=== PATIENT | female | born 1950 | race Caucasian/White ===

== ENCOUNTER 2018-04-21 21:03 | Emergency (ER) | payer MEDICARE, OTHER ==
[~2018-04-21] VITALS: Ht 162.6 cm; Wt 68.0 kg
[~2018-04-21 21:03] MED LIST: AMBIEN5 MG PO; CEFDINIR300 MG PO; CYMBALTA20 MG PO; LASIX20 MG PO; NEXIUM20 MG; NORCO 10-325 T1 EACH
--- OUTSIDE RECORDS SUMMARY | 2018-04-21 21:05 | XMS REPORT | Clinical Summary ---
Author Author [facility] Organization [facility] Address Unknown Phone Unavailable Care Team Providers Care Religion Department Chair Name Role Phone Christopher Villaseñor MD PCP Allergies Comments Active Allergy Reactions Severity Noted Date Pt states cannot take, since she will bleed from it, not allergy Aspirin 10/11/2015 "makes me turn blue" Benzene Other (See 11/02/2016 Comments) Citalopram 04/10/2017 Dye 10/11/2015 Needs premed with Prednisone and Benadryl (Sneezing) Iodinated Contrast- Oral 08/08/2015 And Iv Dye Mild respiratory, sneezing, chest tightness Iodine Other (See 06/10/2006 Comments) Metoprolol Succinate Nausea And 10/11/2015 Vomiting Medications End Date Status Medication Sig Dispensed Refills Start Date Active FLUoxetine (PROzac) 20 MG Take 20 mg by 3 capsule mouth every 6 morning. Active lidocaine-prilocaine 0 (EMLA) cream Active furosemide (LASIX) 20 MG Take 20 mg by 0 tablet mouth as needed (leg swelling). Active melatonin tablet Take 10 mg by 0 mouth as needed. Active cholecalciferol, vitamin Take 5,000 0 D3, (VITAMIN D3) 1,000 Units by unit tablet mouth daily. Active HYDROcodone-acetaminophen Take 1 tablet 0 (NORCO) 10-325 mg per by mouth 3 tablet (three) times a day as needed for moderate pain. Active cyanocobalamin-cobamamide Place under 0 (B12) 5,000-100 mcg the tongue. lozenge Active multivitamin with Take 1 tablet 0 minerals tablet by mouth daily. Active bevacizumab (AVASTIN) 25 Infuse 400 mg 0 mg/mL chemo injection into a venous catheter every 30 (thirty) days. Active FERUMOXYTOL (FERAHEME IV) Infuse into a 0 venous catheter. Active acyclovir (ZOVIRAX) 200 Take 400 mg 4 MG capsule by mouth 2 8 (two) times a day. Active gabapentin (NEURONTIN) Take 400 mg 3 400 mg capsule by mouth 2 8 (two) times a day. Active traZODone (DESYREL) 50 MG Take 50 mg by 0 tablet mouth 8 nightly. Active FLUoxetine (PROzac) 10 MG TAKE 1 3 capsule CAPSULE TO BE 8 TAKEN WITH 20 MG ONCE A DAY ORALLY 12/09/2018 Active pantoprazole (PROTONIX) Take 1 tablet 180 tablet 3 40 MG EC tablet (40 mg total) 8 by mouth 2 (two) times a day. Active amoxicillin-pot 0 clavulanate (AUGMENTIN) 8 875-125 mg per tablet Active methylPREDNISolone 0 (MEDROL DOSEPAK) 4 mg 8 tablet Active temazepam (RESTORIL) 15 Take 15 mg by 0 mg capsule mouth nightly 8 as needed. 11/20/2017 Discontinued zolpidem (AMBIEN) 5 MG Take 5 mg by 0 tablet mouth nightly as needed for sleep. 06/06/2017 Discontinued alendronate (FOSAMAX) 70 Take 70 mg by 0 MG tablet mouth. Take in the morning with a full glass of water, on an empty stomach, and do not take anything else by mouth or lie down for the next 30 min. 09/12/2017 Discontinued pantoprazole (PROTONIX) Take 1 tablet 60 tablet 11 40 MG EC tablet (40 mg total) 7 by mouth 2 (two) times a day. 06/06/2017 Discontinued albuterol (PROAIR Inhale 2 0 HFA,PROVENTIL puffs every 4 HFA,VENTOLIN HFA) 90 (four) hours mcg/actuation inhaler as needed for wheezing or shortness of breath. 06/06/2017 Discontinued ipratropium-albuterol Take 3 mL by 0 (DUO-NEB) 0.5-2.5 mg/mL nebulization nebulizer every 4 (four) hours as needed for wheezing or shortness of breath. 06/06/2017 Discontinued arformoterol (BROVANA) 15 Take 15 mcg 0 mcg/2 mL solution for by nebulization nebulization 2 (two) times a day. 06/06/2017 Discontinued budesonide (PULMICORT) Take 0.5 mg 0 0.5 mg/2 mL nebulizer by solution nebulization 2 (two) times a day. 12/09/2017 Discontinued pantoprazole (PROTONIX) Take 1 tablet 60 tablet 3 40 MG EC tablet (40 mg total) 7 by mouth 2 (two) times a day. 06/06/2017 Discontinued famotidine (PEPCID) 20 MG Take 1 tablet 60 tablet 0 tablet (20 mg total) 8 by mouth 2 (two) times a day for 30 days. 09/19/2017 Discontinued memantine (NAMENDA) 5 MG Take 1 tablet 60 tablet 11 tablet (5 mg total) 8 by mouth 2 (two) times a day. 09/19/2017 Discontinued pantoprazole (PROTONIX) TAKE 1 TABLET 60 tablet 8 40 MG EC tablet BY MOUTH 8 TWICE A DAY 11/20/2017 Discontinued docosahexanoic acid/epa Take 1 0 (FISH OIL ORAL) capsule by mouth daily. 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 Encounters Care Team Description Date Type Specialty Christopher Villaseñor MD Hereditary hemorrhagic telangiectasia (HCC) (Primary Dx); Iron deficiency anemia due to chronic blood loss 04/08/2018 Hospital Hematology and Oncology Encounter Yesenia Trinh RN 04/02/2018 Orders Only Hematology and Oncology Christopher Villaseñor MD Canceled (Patient) 03/27/2018 Hospital Hematology and Oncology Encounter Christopher Vilalseñor MD Hereditary hemorrhagic telangiectasia (HCC) (Primary Dx); Iron deficiency anemia due to chronic blood loss 02/27/2018 Hospital Hematology and Oncology Encounter Christopher Villaseñor MD Hereditary hemorrhagic telangiectasia (HCC) 02/27/2018 Orders Only Hematology and Oncology Tania Courtney, [employer] 02/27/2018 Orders Only Hematology and Oncology Christopher Villaseñor MD 02/27/2018 Orders Only Hematology and Oncology Christopher Villaseñor MD Iron deficiency anemia secondary to blood loss (chronic) (Primary Dx); Hereditary hemorrhagic telangiectasia (HCC) 02/25/2018 Lab Lab Christopher Villaseñor MD Hereditary hemorrhagic telangiectasia (HCC) 02/25/2018 Orders Only Hematology and Oncology Tania Courtney, S[employer]IOR [employer] LO[employer]ER 02/25/2018 Orders Only Hematology and Oncology Christopher Villaseñor MD 02/17/2018 Orders Only Hematology and Oncology Vaughn Givens RN 02/12/2018 Orders Only Oncology Christopher Villaseñor MD Hereditary hemorrhagic telangiectasia (HCC); Iron deficiency anemia due to chronic blood loss 01/15/2018 Hospital Hematology and Oncology Encounter Christopher Villaseñor MD Hereditary hemorrhagic telangiectasia (HCC) 01/15/2018 Orders Only Hematology and Oncology Kristy Keating RN 12/24/2017 Refill Obstetrics and Gynecology Christopher Villaseñor MD Iron deficiency anemia due to chronic blood loss; Hereditary hemorrhagic telangiectasia 12/18/2017 Hospital Hematology and Oncology Encounter Christopher Villaseñor MD 12/10/2017 Orders Only Hematology and Oncology Kurt Isaacs MD 12/09/2017 Lab Lab Brina Trimble MA 12/09/2017 Refill Gastroenterology Christopher Villaseñor MD Canceled (Patient) 12/06/2017 Hospital Hematology and Oncology Encounter Christopher Villaseñor MD Hereditary hemorrhagic telangiectasia 12/06/2017 Orders Only Hematology and Oncology Miranda Masterson MD 11/21/2017 Anesthesia Radiology Event Christopher Villaseñor MD Hereditary hemorrhagic telangiectasia 11/21/2017 Hospital Radiology Encounter Christopher Villaseñor MD 11/13/2017 Transcribe Radiology Orders Christopher Villaseñor MD Hereditary hemorrhagic telangiectasia (Primary Dx) 11/12/2017 Transcribe Radiology Orders Christopher Villaseñor MD Hereditary hemorrhagic telangiectasia; Iron deficiency anemia due to chronic blood loss 11/08/2017 Hospital Hematology and Oncology Encounter Christopher Villaseñor MD Canceled (Patient) 11/01/2017 Hospital Hematology and Oncology Encounter Christopher Villaseñor MD Hereditary hemorrhagic telangiectasia; Iron deficiency anemia due to chronic blood loss 10/03/2017 Hospital Hematology and Oncology Encounter Christopher Villaseñor MD Hereditary hemorrhagic telangiectasia 10/03/2017 Orders Only Hematology and Oncology Christopher Villaseñor MD Canceled (Patient) 09/30/2017 Hospital Hematology and Oncology Encounter Tania Courtney, SHELBY 09/30/2017 Orders Only Hematology and Oncology Ralf Hurley MD Cerebrovascular accident (CVA) due to bilateral embolism of middle cerebral arteries (Primary Dx); Hereditary hemorrhagic telangiectasia 09/19/2017 Office Visit Neurology Behzad Elaine MD 09/11/2017 Refill Gastroenterology Christopher Villaseñor MD Hereditary hemorrhagic telangiectasia 09/02/2017 Hospital Hematology and Oncology Encounter Christopher Villaseñor MD Canceled (Patient) 08/30/2017 Hospital Hematology and Oncology Encounter Ralf Hurley MD Hereditary hemorrhagic telangiectasia; Cerebrovascular accident (CVA) due to bilateral embolism of middle cerebral arteries 08/14/2017 Hospital Neurology Encounter Tania Courtney, SHELBY 08/12/2017 Orders Only Hematology and Oncology Christopher Villaseñor MD Hereditary hemorrhagic telangiectasia; Iron deficiency anemia due to chronic blood loss 08/02/2017 Hospital Hematology and Oncology Encounter Ralf Hurley MD 07/30/2017 Transcribe Neurology Orders Christopher Villaesñor MD Hereditary hemorrhagic telangiectasia; Iron deficiency anemia due to chronic blood loss 07/05/2017 Hospital Hematology and Oncology Encounter Kirk Avalos MD 07/01/2017 Orders Only Neurology Ralf Hurley MD 06/27/2017 Orders Only Neurology Ralf Hurley MD 06/20/2017 Telephone Neurology Christopher Villaseñor MD Hereditary hemorrhagic telangiectasia; Iron deficiency anemia due to chronic blood loss 06/07/2017 [facility] Hematology and Oncology Encounter Jeremy Chavez MD 06/06/2017 Anesthesia Gastroenterology Event Behzad Elaine MD ESOPHAGOGASTRODUODENOSCOPY (EGD) with APC to AVM's in Small Intestine 06/06/2017 Surgery Gastroenterology Behzad Elaine MD Hereditary hemorrhagic telangiectasia (Primary Dx) 06/06/2017 Hospital Gastroenterology Encounter Tania Courtney NP 06/06/2017 Orders Only Hematology and Oncology Christopher Villaseñor MD Hereditary hemorrhagic telangiectasia 06/06/2017 Orders Only Hematology and Oncology Ralf Hurley MD Hereditary hemorrhagic telangiectasia (Primary Dx); Cerebrovascular accident (CVA) due to bilateral embolism of middle cerebral arteries 06/04/2017 Office Visit Neurology Pallavi Saravia MD 05/31/2017 Anesthesia Gastroenterology Event Behzad Elaine MD ESOPHAGOGASTRODUODENOSCOPY (EGD)with APC, balloon dilation 18-20mm 05/31/2017 Surgery Gastroenterology Farooq Dai MD Iron deficiency anemia, unspecified iron deficiency anemia type (Primary Dx); Food impaction of esophagus, subsequent encounter; Hereditary hemorrhagic telangiectasia 05/29/2017 [facility] General Internal Medicine - Encounter 05/31/2017 Christopher Villaseñor MD Iron deficiency anemia due to chronic blood loss 05/29/2017 Hospital Hematology and Oncology Encounter Farooq Dai MD 05/29/2017 Orders Only General Internal Medicine Dagmar Lechuga NP 05/29/2017 Orders Only General Internal Medicine Behzad Elaine MD 05/24/2017 Telephone Gastroenterology Ramandeep Martinez MD 05/16/2017 Anesthesia Radiology Event Christopher Villaseñor MD 05/16/2017 Hospital Radiology Encounter Canceled (Department/Provider) 05/10/2017 Hospital Hematology and Oncology Encounter Behzad Elaine MD ESOPHAGOGASTRODUODENOSCOPY (EGD)with foreign body removal 05/09/2017 Surgery Gastroenterology Carrie Loaiza MD Tompson, Matthew L., MD Food impaction of esophagus, initial encounter (Primary Dx); Esophageal obstruction due to food impaction 05/09/2017 Emergency Emergency Medicine - 05/10/2017 Audrey Barragan RN 05/09/2017 Telephone Gastroenterology Christopher Villaseñor MD 05/09/2017 Transcribe Radiology Orders Tania Courtney NP 05/09/2017 Orders Only Hematology and Oncology Ralf Hurley MD 04/22/2017 Telephone Neurology after 04/20/2017 Immunizations Name Dates Previously Given Next Due FLUCELVAX QUAD PF (0.5mL 05/31/2017, 01/02/2016 syringe) Pneumococcal Conjugate 05/31/2017, 01/02/2016 13-Valent Family History Medical History Relation Name Comments Heart disease Brother Heart disease Father Stroke Father Cancer Mother Lung cancer Mother Relation Name Status Comments Brother HHT Father Mother Social History Date Tobacco Use Types Packs/Day Years Used Quit: 06/11/1998 Former Smoker Cigarettes 2 Smokeless Tobacco: Never Used Alcohol Use Drinks/Week oz/Week Comments No Sex Assigned at Date Recorded Not on file Industry Job Start Date Occupation Not on file Not on file Not on file Travel End Travel History Travel Start No recent travel history available. Last Filed Vital Signs Time Taken Vital Sign Reading 04/08/2018 11:30 AM [employer] Blood Pressure 131/59 04/08/2018 11:30 AM [employer] Pulse 67 04/08/2018 11:30 AM [employer] Temperature 36.9 C (98.4 F) 04/08/2018 11:30 AM [employer] Respiratory Rate 18 04/08/2018 11:30 AM [employer] Oxygen Saturation 87% - Inhaled Oxygen - Concentration 04/08/2018 11:30 AM [employer] Weight 69.7 kg (153 lb 9.6 oz) 04/08/2018 11:30 AM [employer] Height 162.6 cm (5' 4") 04/08/2018 11:30 AM [employer] Body Mass Index 26.37 Plan of Treatment Care Team Description Date Type Specialty Christopher Villaseñor MD [address] [place], [place] [id number] 05/06/2018 Appointment Hematology and Oncology Health Maintenance Due Date Last Done Comments BREAST CANCER SCREENING 2000 COLON CANCER SCREENING 2000 SHINGLES VACCINES (1 of 2000 2) PNEUMOCOCCAL 2015 POLYSACCHARIDE VACCINE AGE 65 AND OVER INFLUENZA VACCINE 10/30/2017 05/31/2017, 01/02/2016, 12/14/2013, Additional history exists PNEUMOCOCCAL-13 Completed 05/31/2017, 01/02/2016 Implants Device Identifier Shelf Expiration Date Model / Serial / Lot Implanted Type Area Manufactur er 08/29/2020 [id number] / / [id number] Port Imlpntbl Smart Port W/ Dtchd Implantabl N/A: N/A ANGIODYNAM 0.4ml 6.6fr 55cm W/ Sheath - e [employer]fusion [employer] [id number] Ports or Implanted: 11/21/2017 (Quantity not Accessorie on file) s [id number] / / Dilator Baln Fxdwr [id number] Surgical N/A: N/A BSC 18-19-20mm Cre - [id number] Implants; ENDOSCOPY Implanted: 05/31/2017 (Quantity not Expanders; on file) Extenders; Surgical Wires Procedures Comments Procedure Name Priority Date/Time Associated Diagnosis MANUAL DIFFERENTIAL STAT 04/08/2018 10:34 AM [employer] ESTIMATED GFR STAT 04/08/2018 10:34 AM [employer] COMPREHENSIVE METABOLIC STAT 04/08/2018 Hereditary hemorrhagic PANEL 10:34 AM [employer] telangiectasia (HCC) CBC WITH PLATELET AND STAT 04/08/2018 Hereditary hemorrhagic DIFFERENTIAL 10:34 AM [employer] telangiectasia (HCC) URINALYSIS, AUTOMATED STAT 04/08/2018 Hereditary hemorrhagic WITH MICROSCOPY 10:34 AM [employer] telangiectasia (HCC) URINALYSIS, AUTOMATED STAT 02/27/2018 Hereditary hemorrhagic WITH MICROSCOPY 10:39 AM [employer] telangiectasia (HCC) ESTIMATED GFR Routine 02/25/2018 10:02 AM [employer] TOTAL IRON BINDING Routine 02/25/2018 Iron deficiency anemia CAPACITY 10:02 AM [employer] secondary to blood loss (chronic) Hereditary hemorrhagic telangiectasia (HCC) FERRITIN LEVEL Routine 02/25/2018 Iron deficiency anemia 10:02 AM [employer] secondary to blood loss (chronic) Hereditary hemorrhagic telangiectasia (HCC) HEPATIC FUNCTION PANEL Routine 02/25/2018 Iron deficiency anemia 10:02 AM [employer] secondary to blood loss (chronic) Hereditary hemorrhagic telangiectasia (HCC) BASIC METABOLIC PANEL Routine 02/25/2018 Iron deficiency anemia 10:02 AM [employer] secondary to blood loss (chronic) Hereditary hemorrhagic telangiectasia (HCC) MANUAL DIFFERENTIAL STAT 01/15/2018 10:29 AM CDT ESTIMATED GFR STAT 01/15/2018 10:29 AM CDT COMPREHENSIVE METABOLIC STAT 01/15/2018 Hereditary hemorrhagic PANEL 10:29 AM CDT telangiectasia (HCC) CBC WITH PLATELET AND STAT 01/15/2018 Hereditary hemorrhagic DIFFERENTIAL 10:29 AM CDT telangiectasia (HCC) URINALYSIS, AUTOMATED STAT 01/15/2018 Hereditary hemorrhagic WITH MICROSCOPY 10:29 AM CDT telangiectasia (HCC) MANUAL DIFFERENTIAL STAT 12/18/2017 10:34 AM CDT ESTIMATED GFR STAT 12/18/2017 10:34 AM CDT COMPREHENSIVE METABOLIC STAT 12/18/2017 Hereditary hemorrhagic PANEL 10:34 AM CDT telangiectasia CBC WITH PLATELET AND STAT 12/18/2017 Hereditary hemorrhagic DIFFERENTIAL 10:34 AM CDT telangiectasia URINALYSIS, AUTOMATED STAT 12/18/2017 Hereditary hemorrhagic WITH MICROSCOPY 10:34 AM CDT telangiectasia RESPIRATORY PATHOGEN Routine 12/09/2017 PANEL 11:08 AM CDT TRANSFUSE RED BLOOD CELLS Routine 12/04/2017 5:50 PM CDT TRANSFUSE RED BLOOD CELLS Routine 12/04/2017 5:50 PM CDT IR PORT Routine 11/21/2017 Hereditary hemorrhagic REPLACEMENT/EXCHANGE 3:54 PM CDT telangiectasia (HCC) IR PORT EVALUATION Routine 11/21/2017 Hereditary hemorrhagic 3:54 PM CDT telangiectasia (HCC) MT AN ELECTIVE Routine 11/21/2017 SUPRAGLOTTIC AIRWAY 2:37 PM CDT Procedure Note - Miranda Masterson MD - 11/21/2017 2:37 PM CDT Airway Date/Time: 11/21/2017 2:27 PM Performed by: MIRANDA MASTERSON Authorized by: MIRANDA MASTERSON Location: Radiology Urgency: Elective Difficult Airway: No Anesthesio logist: MIRANDA MASTERSON Performed by: anesthesio logist Preoxygena misti with 100% O2: Yes C-spine Precaution s Maintained Throughout : No Mask Ventilatio n: Not attempted Final Airway Type: Supraglott ic airway Final LMA: Classic LMA Size: 3 Number of Attempts at Approach: 1 PROTHROMBIN TIME WITH INR STAT 11/08/2017 2:13 PM CDT PARTIAL THROMBOPLASTIN STAT 11/08/2017 Iron deficiency anemia TIME (PTT) 2:13 PM CDT due to chronic blood loss MANUAL DIFFERENTIAL STAT 11/08/2017 10:54 AM CDT ZZESTIMATED GFR STAT 11/08/2017 10:54 AM CDT COMPREHENSIVE METABOLIC STAT 11/08/2017 Hereditary hemorrhagic PANEL 10:54 AM CDT telangiectasia CBC WITH PLATELET AND STAT 11/08/2017 Hereditary hemorrhagic DIFFERENTIAL 10:54 AM CDT telangiectasia URINALYSIS, AUTOMATED STAT 11/08/2017 Hereditary hemorrhagic WITH MICROSCOPY 10:54 AM CDT telangiectasia MAGNESIUM LEVEL STAT 10/03/2017 10:28 AM CDT SMEAR REVIEW STAT 10/03/2017 10:28 AM CDT ZZESTIMATED GFR STAT 10/03/2017 10:28 AM CDT COMPREHENSIVE METABOLIC STAT 10/03/2017 Hereditary hemorrhagic PANEL 10:28 AM CDT telangiectasia HC COMPLETE BLD COUNT STAT 10/03/2017 Hereditary hemorrhagic W/AUTO DIFF 10:28 AM CDT telangiectasia URINALYSIS, AUTOMATED STAT 10/03/2017 Hereditary hemorrhagic WITH MICROSCOPY 10:28 AM CDT telangiectasia SMEAR REVIEW STAT 09/02/2017 9:47 AM CDT ZZESTIMATED GFR STAT 09/02/2017 9:47 AM CDT COMPREHENSIVE METABOLIC STAT 09/02/2017 Hereditary hemorrhagic PANEL 9:47 AM CDT telangiectasia HC COMPLETE BLD COUNT STAT 09/02/2017 Hereditary hemorrhagic W/AUTO DIFF 9:47 AM CDT telangiectasia URINALYSIS, AUTOMATED STAT 09/02/2017 Hereditary hemorrhagic WITH MICROSCOPY 9:47 AM CDT telangiectasia EEG AWAKE/DROWSY LESS Routine 08/14/2017 Hereditary hemorrhagic THAN 41 MIN 1:38 PM CDT telangiectasia Cerebrovascular accident (CVA) due to bilateral embolism of middle cerebral arteries SMEAR REVIEW STAT 08/02/2017 9:42 AM CDT ZZESTIMATED GFR STAT 08/02/2017 9:42 AM CDT COMPREHENSIVE METABOLIC STAT 08/02/2017 Hereditary hemorrhagic PANEL 9:42 AM CDT telangiectasia HC COMPLETE BLD COUNT STAT 08/02/2017 Hereditary hemorrhagic W/AUTO DIFF 9:42 AM CDT telangiectasia URINALYSIS, AUTOMATED STAT 08/02/2017 Hereditary hemorrhagic WITH MICROSCOPY 9:42 AM CDT telangiectasia SMEAR REVIEW STAT 07/05/2017 9:18 AM CDT ZZESTIMATED GFR STAT 07/05/2017 9:18 AM CDT COMPREHENSIVE METABOLIC STAT 07/05/2017 Hereditary hemorrhagic PANEL 9:18 AM CDT telangiectasia HC COMPLETE BLD COUNT STAT 07/05/2017 Hereditary hemorrhagic W/AUTO DIFF 9:18 AM CDT telangiectasia URINALYSIS, AUTOMATED STAT 07/05/2017 Hereditary hemorrhagic WITH MICROSCOPY 9:18 AM CDT telangiectasia MRA NECK WO CONTRAST Routine 06/28/2017 MRA HEAD WO CONTRAST Routine 06/28/2017 MRI BRAIN WO CONTRAST Routine 06/26/2017 MANUAL DIFFERENTIAL STAT 06/07/2017 9:17 AM [employer] ZZESTIMATED GFR STAT 06/07/2017 9:17 AM [employer] COMPREHENSIVE METABOLIC STAT 06/07/2017 Hereditary hemorrhagic PANEL 9:17 AM [employer] telangiectasia CBC WITH PLATELET AND STAT 06/07/2017 Hereditary hemorrhagic DIFFERENTIAL 9:17 AM [employer] telangiectasia URINALYSIS, AUTOMATED STAT 06/07/2017 Hereditary hemorrhagic WITH MICROSCOPY 9:17 AM [employer] telangiectasia ESOPHAGOGASTRODUODENOSCOP 06/06/2017 Dysphagia Y (EGD) 12:00 PM [employer] ESOPHAGOGASTRODUODENOSCOP 05/31/2017 Food impaction of Y (EGD) 7:00 AM [employer] esophagus, subsequent encounter Iron deficiency anemia, unspecified iron deficiency anemia type ZZESTIMATED GFR Routine 05/31/2017 6:21 AM [employer] MAGNESIUM LEVEL Routine 05/31/2017 6:21 AM [employer] BASIC METABOLIC PANEL Routine 05/31/2017 6:21 AM [employer] HC COMPLETE BLD COUNT Routine 05/31/2017 W/AUTO DIFF 6:21 AM [employer] PERIPHERAL SMEAR Routine 05/30/2017 5:33 AM [employer] SMEAR REVIEW Routine 05/30/2017 5:33 AM [employer] HC COMPLETE BLD COUNT Routine 05/30/2017 W/AUTO DIFF 5:33 AM [employer] ZZESTIMATED GFR Routine 05/30/2017 4:00 AM [employer] BASIC METABOLIC PANEL Routine 05/30/2017 4:00 AM [employer] TRANSFUSE RED BLOOD CELLS Routine 05/29/2017 Iron deficiency anemia 5:56 PM [employer] due to chronic blood loss HAPTOGLOBIN STAT 05/29/2017 5:11 PM [employer] LDH STAT 05/29/2017 Iron deficiency anemia 5:11 PM [employer] due to chronic blood loss URINALYSIS, AUTOMATED STAT 05/29/2017 Iron deficiency anemia WITH MICROSCOPY 4:57 PM [employer] due to chronic blood loss HC COMPLETE BLD COUNT STAT 05/29/2017 Iron deficiency anemia W/AUTO DIFF 4:57 PM [employer] due to chronic blood loss PREPARE RBC Timed 05/29/2017 9:40 AM [employer] PREPARE RBC Timed 05/29/2017 Iron deficiency anemia 9:40 AM [employer] due to chronic blood loss PREPARE RBC Timed 05/29/2017 Iron deficiency anemia 9:40 AM [employer] due to chronic blood loss TYPE AND SCREEN Timed 05/29/2017 Iron deficiency anemia 9:40 AM [employer] due to chronic blood loss SMEAR REVIEW Routine 05/29/2017 9:10 AM [employer] HC COMPLETE BLD COUNT Routine 05/29/2017 W/AUTO DIFF 9:10 AM [employer] IR PORT PLACEMENT Routine 05/16/2017 Hereditary hemorrhagic 3:56 PM [employer] telangiectasia IR PORT REMOVAL Routine 05/16/2017 Hereditary hemorrhagic 3:56 PM [employer] telangiectasia MT AN ELECTIVE Routine 05/16/2017 SUPRAGLOTTIC AIRWAY 2:47 PM [employer] Procedure Note - Jeremy Chavez MD - 05/16/2017 2:47 PM [employer] Airway Date/Time: 05/16/2017 2:08 PM Performed by: JEREMY CHAVEZ Authorized by: JEREMY CHAVEZ Location: OR Urgency: Elective Difficult Airway: No Anesthesio logist: JEREMY CHAVEZ Performed by: anesthesinghia garcia Preoxygena misti with 100% O2: Yes C-spine Precaution s Maintained Throughout : Yes Mask Ventilatio n: Easy mask Final Airway Type: Supraglott ic airway Final LMA: Classic LMA Size: 3 Number of Attempts at Approach: 1 MT CRITICAL CARE, E/M Routine 05/10/2017 30-74 MINUTES 10:55 PM [employer] ESOPHAGOGASTRODUODENOSCOP 05/09/2017 Food impaction of Y (EGD) 11:25 PM [employer] esophagus, initial encounter after 04/20/2017 Results * Estimated GFR (04/08/2018 10:34 AM [employer]) Only the most recent of 4 results within the time period is included. Estimated GFR 76 mL/min/1.73 m2 [facility] Comment: HOSPITAL CatergoryUnitsInte rpretation G1 >=90 Normal or high G2 60-89Mildly decreased F3h40-45 Mildly to moderately decreased V8h35-68 Moderately to severely decreased G4 15-29Severely decreased G5 <15Kidney failure The eGFR was calculated using the Chronic Kidney Disease Epidemiology Collaboration (CKD-EPI) equation. Interpretation is based on recommendations of the National Kidney Foundation-Kidney Disease Outcomes Quality Initiative (NKF-KDOQI) published in 2014. Specimen Plasma specimen Performing Organization Address City/[facility]/[place] [address] PATHOLOGY [facility] [address] * Manual differential (04/08/2018 10:34 AM [employer]) Only the most recent of 5 results within the time period is included. Manual differential PERFORMED [facility] Neutrophils 62.0 39.0 - 69.0 % [facility] Lymphocytes 22.0 (L) 25.0 - 45.0 % [facility] Monocytes 12.0 (H) 0.0 - 10.0 % [facility] Eosinophils 4.0 0.0 - 5.0 % [facility] Basophils 0.0 0.0 - 1.0 % [facility] Metamyelocytes 0 % [facility] Promyelocytes 0 % [facility] Platelet slide review [place] adequate [facility] Toxic granulation Slight [facility] Anisocytosis Moderate [facility] Polychromasia Moderate [facility] Tear drop cells Occasional [facility] Spherocytes Occasional [facility] Ovalocytes Moderate [facility] Enlarged platelets Moderate (A) [facility] Giant platelets Occasional [facility] Performing Organization Address [facility]/[employer] Phone Number [facility] [place] [address] PATHOLOGY AND GENOMIC MEDICINE [address] * Urinalysis, automated with microscopy (04/08/2018 10:34 AM [employer]) Only the most recent of 11 results within the time period is included. Color, UA Yellow [facility] Appearance, UA Clear [facility] Specific gravity, UA 1.025 1.001 - 1.035 [facility] pH, UA 5.0 5.0 - 8.5 [facility] Protein, UA Negative Negative [facility] Glucose, UA Negative Negative [facility] Ketones, UA Trace (A) Negative [facility] Bilirubin, UA Negative Negative [facility] Blood, UA Negative Negative [facility] Nitrite, UA Negative Negative [facility] Urobilinogen, UA Footnote <2.0 [facility] Comment: HOSPITAL UNABLE TO REPORT. Corrected result; previously reported as 2.0 on 04/08/2018 at 11:19 by I/AUT Leukocyte esterase, UA Trace (A) Negative [facility] Epithelial cells, UA 8 /HPF [facility] WBC, UA 3 0 - 4 /HPF [facility] RBC, UA 1 0 - 5 /HPF [facility] Bacteria, UA Few None seen [facility] Hyaline casts, UA 4 /LPF [facility] Yeast, UA None seen [facility] Yeast with pseudohyphae, None seen [facility] Specimen Urine Performing Organization Address City/State/Zipcode Phone Number [facility] DEPARTMENT OF [address] [place] [address] PATHOLOGY AND GENOMIC MEDICINE [address] * CBC with platelet and differential (04/08/2018 10:34 AM [employer]) Only the most recent of 13 results within the time period is included. WBC 4.20 (L) 4.50 - 11.00 k/uL [facility] RBC 4.04 (L) 4.20 - 5.50 m/uL [facility] HGB 13.6 12.0 - 16.0 g/dL [facility] HCT 41.0 37.0 - 47.0 % [facility] MCV 101.5 (H) 82.0 - 100.0 fL [facility] MCH 33.7 27.0 - 34.0 pg [facility] MCHC 33.2 31.0 - 37.0 g/dL [facility] RDW - SD 51.9 37.0 - 55.0 fL [facility] MPV 11.6 8.8 - 13.2 fL [facility] Platelet count 201 150 - 400 k/uL [facility] Neutrophils 62.0 39.0 - 69.0 % [facility] Lymphocytes 22.0 (L) 25.0 - 45.0 % [facility] Monocytes 12.0 (H) 0.0 - 10.0 % [facility] Eosinophils 4.0 0.0 - 5.0 % [facility] Basophils 0.0 0.0 - 1.0 % [facility] Specimen Blood Performing Organization Address City/State/Zipcode Phone Number [facility] DEPARTMENT OF [address] [place] [address] PATHOLOGY AND GENOMIC MEDICINE [address] * Comprehensive metabolic panel (04/08/2018 10:34 AM [employer]) Only the most recent of 9 results within the time period is included. Sodium 138 135 - 148 mEq/L [facility] Potassium 4.5 3.5 - 5.0 mEq/L [facility] Chloride 104 98 - 112 mEq/L [facility] CO2 24 24 - 31 mEq/L [facility] Anion gap 10@ANIO 7 - 15 mEq/L [facility] BUN 18 8 - 23 mg/dL [facility] Creatinine 0.80 0.50 - 0.90 mg/dL [facility] Glucose 116 (H) 65 - 99 mg/dL [facility] Calcium 8.8 8.8 - 10.2 mg/dL [facility] Protein 6.5 6.3 - 8.3 g/dL [facility] Comment: HOSPITAL [place] 4.6-7.0 g/dL 1 week 4.4-7.6 g/dL 7 months-1year 5.1-7.3 g/dL 1-2 years5.6-7 .5 g/dL >3 years6.0-8 .0 g/dL 18-150 6.3-8.3 g/dL Albumin 3.3 (L) 3.5 - 5.0 g/dL [facility] A/G ratio 1.0 0.7 - 3.8 [facility] Alkaline phosphatase 73 35 - 104 U/L [facility] AST 15 10 - 35 U/L [facility] ALT 20 5 - 50 U/L [facility] Total bilirubin <0.2 0.0 - 1.2 mg/dL [facility] Specimen Plasma specimen Performing Organization Address City/[facility]/[employer] Phone Number [facility] [place] [address] PATHOLOGY AND GENOMIC MEDICINE [address] * Total iron binding capacity (02/25/2018 10:02 AM [employer]) Iron level 75 37 - 145 ug/dL [facility] Iron binding capacity 229 200 - 400 ug/dL [facility] % Saturation 32.8 15.0 - 38.0 % [facility] Specimen Plasma specimen Performing Organization Address [facility] Phone Number [facility] [place] [address] PATHOLOGY AND GENOMIC MEDICINE [address] * Ferritin level (02/25/2018 10:02 AM [employer]) Ferritin level 142 13 - 150 ng/mL [facility] Specimen Plasma specimen Performing Organization Address [facility] Phone Number [facility] [place] [address] PATHOLOGY AND GENOMIC MEDICINE [address] * Hepatic function panel (02/25/2018 10:02 AM [employer]) Albumin 3.9 3.5 - 5.0 g/dL [facility] Total bilirubin 0.4 0.0 - 1.2 mg/dL [facility] Bilirubin direct <0.2 0.0 - 0.3 mg/dL [facility] Alkaline phosphatase 74 35 - 104 U/L [facility] Protein 6.6 6.3 - 8.3 g/dL [facility] Comment: HOSPITAL 4.6-7.0 g/dL 1 week 4.4-7.6 g/dL 7 months-1year 5.1-7.3 g/dL 1-2 years5.6-7 .5 g/dL >3 years6.0-8 .0 g/dL 18-150 6.3-8.3 g/dL ALT 20 5 - 50 U/L [facility] AST 24 10 - 35 U/L [facility] Specimen Plasma specimen Performing Organization Address [facility]/Zipcode Phone Number [facility] DEPARTMENT OF [address] [place] [address] PATHOLOGY AND GENOMIC MEDICINE [address] * Basic metabolic panel (02/25/2018 10:02 AM [employer]) Only the most recent of 3 results within the time period is included. Sodium 145 135 - 148 mEq/L [facility] Potassium 4.0 3.5 - 5.0 mEq/L [facility] Chloride 106 98 - 112 mEq/L [facility] CO2 24 24 - 31 mEq/L [facility] Anion gap 15@ANIO 7 - 15 mEq/L [facility] BUN 21 8 - 23 mg/dL [facility] Creatinine 0.83 0.50 - 0.90 mg/dL [facility] Glucose 98 65 - 99 mg/dL [facility] Calcium 9.2 8.8 - 10.2 mg/dL [facility] Specimen Plasma specimen Performing Organization Address [facility]/[employer] Phone Number [facility] [place] [address] PATHOLOGY AND GENOMIC MEDICINE [address] * Respiratory pathogen panel (12/09/2017 11:08 AM CDT) Respiratory pathogen Negative for all pathogens [facility] DEPARTMENT OF panel tested: PATHOLOGY AND Negative for Adenovirus GENOMIC MEDICINE Negative for Coronavirus HKU1 Negative for Coronavirus NL63 Negative for Coronavirus 229E Negative for Coronavirus OC43 Negative for Human Metapneumovirus Negative for Rhinovirus/Enterovirus Negative for Influenza A Negative for Influenza A/H1 Negative for Influenza A/H3 Negative for Influenza A/H1-2009 Negative for Influenza B Negative for Parainfluenza Virus 1 Negative for Parainfluenza Virus 2 Negative for Parainfluenza Virus 3 Negative for Parainfluenza Virus 4 Negative for Respiratory Syncytial Virus Negative for Bordetella pertussis Negative for Chlamydophila pneumoniae Negative for Mycoplasma pneumoniae This real-time PCR assay detects the presence of nucleic acids (RNA or DNA) for the respiratory pathogens listed. A result of "Not-detected" does not exclude the possibility of the presence of one or more pathogens at concentrations less than the detectable limits of the assay. Comment: Specimen Information Specimen Source: Nares Specimen Site: Not specified Specimen Nares - Not specified Performing Organization Address [facility]/State/Zipcode Phone Number [facility] DEPARTMENT OF [address] [place] [address] PATHOLOGY AND GENOMIC MEDICINE * Transfuse RBC (12/04/2017 5:50 PM CDT) Only the most recent of 3 results within the time period is included. * IR Port Replacement/Exchange (11/21/2017 3:54 PM CDT) Addenda Addendum by Hamilton Negro MD on 01/16/2018 12:35 PM ADDENDUM #1 ADDENDUM: Please add the following statement to the technique section: Under ultrasound guidance, documentation of vessel patency, needle access with permanent recording, and reporting are performed followed by placement of a sheath in the rightinternal jugular vein. Narrative Performed At PERFORMING RADIOLOGIST: KARL Negro MD ASSISTANTS: None ANESTHESIA TIME: General anesthesia provided by the anesthesiology service. Lidocaine 1% and lidocaine 1% mixed epinephrine were used for local anesthetic. 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 Chronic anemia. Right chest port which would flush but not aspirate POST PROCEDURE DIAGNOSIS: Status post subcutaneous right chest port venogram, removal, and replacement. PROCEDURE: Existing right chest port venogram. Subcutaneous right chest port removal. Placement new right chest port. TECHNIQUE: Written informed consent was obtained prior to the procedure. The patient was placed in a supine position on the procedure table. The right chest was sterilely prepared and draped in the routine manner. All elements of maximal sterile barrier technique were followed. All catheters were flushed twice via a 0.2 um filter. All access was performed via a 0.2 um filter. A clin asst fluoroscopic image of the chest was then obtained. The existing port was accessed. Blood could not be aspirated. Venogram was performed which demonstrated significant reflux of contrast along the length of the catheter into the superior vena cava with catheter associated globular filling defect, compatible with a fibrin sheath. Lidocaine 1% and lidocaine 1% mixed with epinephrine were used for local anesthetic. Due to the location of the existing port pocket, it was decided to place a pocket more superiorly over the second rib to minimize port movement when the patient changes from supine to upright positioning. A skin incision was made over the indwelling subcutaneous right chest port, and using combination of sharp-blunt dissection, the port was freed and removed. The pocket incision was irrigated with normal saline and closed using a deep to superficial layer of interrupted 3-0 Vicryl suture and Dermabond. Fluoroscopic imaging of the chest following port removal demonstrates no complications. The patient tolerated the procedure well. Using ultrasound guidance, the rightinternal jugular vein was punctured with a 21-gauge needle allowing placement of a 0.018 inch guidewire. The needle was removed and a micropuncture sheath was then placed over the guidewire. The guidewire was used to measure the location of the superior cavoatrial junction. It was then exchanged for a 0.035 inch J-wire. A subcutaneous pocket was then created at the infraclavicular fossa using sharp and blunt dissection. The pocket was then irrigated with copious amounts of dilute antibiotic solution. A tunnel was made between the pocket and the venotomy site, through which the 6-Cameroonian port catheter was placed. The [employer] Smart port CT was placed in the pocket. Using the previous measurement, the catheter was cut to length. The venotomy was sequentially dilated to accept a peel-away sheath. The catheter was advanced to the peel-away sheath. Peel-away sheath was removed. Spot radiograph confirmed that the catheter tip is located at the superior cavoatrial junction. The port was accessed and found to flush and aspirate freely. The port incision was closed using a deep layer of interrupted 3-0 Vicryl suture and Dermabond. The small venotomy incision was closed with Dermabond. After closure, percutaneous port access was performed. It flushed and aspirated freely. It was packed with heparin. RADIATION DOSE: Ka,r=65 mGy COMPLICATIONS: None SPECIMENS REMOVED: As described above. ESTIMATED BLOOD LOSS: Less than 3 mL BLOOD PRODUCTS ADMINISTERED: None GRAFTS/IMPLANTS: None IMPRESSION: 1. Existing subcutaneous right chest port with catheter tip terminating at the superior cavoatrial junction with surrounding fibrin sheath. 2. Successful removal of the subcutaneous right chest port. 3. Post removal radiograph demonstrates removal of the entire port without evidence of retained foreign body. 4. Successful placement new right chest port with right internal jugular approach central venous catheter tip at superior cavoatrial junction PLAN: - After post sedation monitoring, patient will be discharged home. - Patient has been instructed to not submerge the incision until it has completely healed. [facility]-[id number] Procedure Note Hm Interface, Radiology Results Incoming - 11/21/2017 4:28 PM CDT PERFORMING RADIOLOGIST: Hamilton Negro MD ASSISTANTS: None ANESTHESIA TIME: General anesthesia provided by the anesthesiology service. Lidocaine 1% and lidocaine 1% mixed epinephrine were used for local anesthetic. 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 Chronic anemia. Right chest port which would flush but not aspirate POST PROCEDURE DIAGNOSIS: Status post subcutaneous right chest port venogram, removal, and replacement. PROCEDURE: Existing right chest port venogram. Subcutaneous right chest port removal. Placement new right chest port. TECHNIQUE: Written informed consent was obtained prior to the procedure. The patient was placed in a supine position on the procedure table. The right chest was sterilely prepared and draped in the routine manner. All elements of maximal sterile barrier technique were followed. All catheters were flushed twice via a 0.2 um filter. All access was performed via a 0.2 um filter. A clin asst fluoroscopic image of the chest was then obtained. The existing port was accessed. Blood could not be aspirated. Venogram was performed which demonstrated significant reflux of contrast along the length of the catheter into the superior vena cava with catheter associated globular filling defect, compatible with a fibrin sheath. Lidocaine 1% and lidocaine 1% mixed with epinephrine were used for local anesthetic. Due to the location of the existing port pocket, it was decided to place a pocket more superiorly over the second rib to minimize port movement when the patient changes from supine to upright positioning. A skin incision was made over the indwelling subcutaneous right chest port, and using combination of sharp-blunt dissection, the port was freed and removed. The pocket incision was irrigated with normal saline and closed using a deep to superficial layer of interrupted 3-0 Vicryl suture and Dermabond. Fluoroscopic imaging of the chest following port removal demonstrates no complications. The patient tolerated the procedure well. Using ultrasound guidance, the right internal jugular vein was punctured with a 21-gauge needle allowing placement of a 0.018 inch guidewire. The needle was removed and a micropuncture sheath was then placed over the guidewire. The guidewire was used to measure the location of the superior cavoatrial junction. It was then exchanged for a 0.035 inch J-wire. A subcutaneous pocket was then created at the infraclavicular fossa using sharp and blunt dissection. The pocket was then irrigated with copious amounts of dilute antibiotic solution. A tunnel was made between the pocket and the venotomy site, through which the 6-Cameroonian port catheter was placed. The [employer] Smart port CT was placed in the pocket. Using the previous measurement, the catheter was cut to length. The venotomy was sequentially dilated to accept a peel-away sheath. The catheter was advanced to the peel-away sheath. Peel-away sheath was removed. Spot radiograph confirmed that the catheter tip is located at the superior cavoatrial junction. The port was accessed and found to flush and aspirate freely. The port incision was closed using a deep layer of interrupted 3-0 Vicryl suture and Dermabond. The small venotomy incision was closed with Dermabond. After closure, percutaneous port access was performed. It flushed and aspirated freely. It was packed with heparin. RADIATION DOSE: Ka,r=65 mGy COMPLICATIONS: None SPECIMENS REMOVED: As described above. ESTIMATED BLOOD LOSS: Less than 3 mL BLOOD PRODUCTS ADMINISTERED: None GRAFTS/IMPLANTS: None IMPRESSION: 1. Existing subcutaneous right chest port with catheter tip terminating at the superior cavoatrial junction with surrounding fibrin sheath. 2. Successful removal of the subcutaneous right chest port. 3. Post removal radiograph demonstrates removal of the entire port without evidence of retained foreign body. 4. Successful placement new right chest port with right internal jugular approach central venous catheter tip at superior cavoatrial junction PLAN: - After post sedation monitoring, patient will be discharged home. - Patient has been instructed to not submerge the incision until it has completely healed. [facility]-[id number] Performing Organization Address City/State/[employer] Phone Number [facility] [address] [place] [address] * IR [place]o Cath Check (11/21/2017 3:54 PM CDT) Addenda Addendum by Hamilton Negro MD on 01/16/2018 12:35 PM ADDENDUM #1 ADDENDUM: Please add the following statement to the technique section: Under ultrasound guidance, documentation of vessel patency, needle access with permanent recording, and reporting are performed followed by placement of a sheath in the rightinternal jugular vein. Narrative Performed At PERFORMING RADIOLOGIST: KARL Negro MD ASSISTANTS: None ANESTHESIA TIME: General anesthesia provided by the anesthesiology service. Lidocaine 1% and lidocaine 1% mixed epinephrine were used for local anesthetic. 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 Chronic anemia. Right chest port which would flush but not aspirate POST PROCEDURE DIAGNOSIS: Status post subcutaneous right chest port venogram, removal, and replacement. PROCEDURE: Existing right chest port venogram. Subcutaneous right chest port removal. Placement new right chest port. TECHNIQUE: Written informed consent was obtained prior to the procedure. The patient was placed in a supine position on the procedure table. The right chest was sterilely prepared and draped in the routine manner. All elements of maximal sterile barrier technique were followed. All catheters were flushed twice via a 0.2 um filter. All access was performed via a 0.2 um filter. A clin asst fluoroscopic image of the chest was then obtained. The existing port was accessed. Blood could not be aspirated. Venogram was performed which demonstrated significant reflux of contrast along the length of the catheter into the superior vena cava with catheter associated globular filling defect, compatible with a fibrin sheath. Lidocaine 1% and lidocaine 1% mixed with epinephrine were used for local anesthetic. Due to the location of the existing port pocket, it was decided to place a pocket more superiorly over the second rib to minimize port movement when the patient changes from supine to upright positioning. A skin incision was made over the indwelling subcutaneous right chest port, and using combination of sharp-blunt dissection, the port was freed and removed. The pocket incision was irrigated with normal saline and closed using a deep to superficial layer of interrupted 3-0 Vicryl suture and Dermabond. Fluoroscopic imaging of the chest following port removal demonstrates no complications. The patient tolerated the procedure well. Using ultrasound guidance, the rightinternal jugular vein was punctured with a 21-gauge needle allowing placement of a 0.018 inch guidewire. The needle was removed and a micropuncture sheath was then placed over the guidewire. The guidewire was used to measure the location of the superior cavoatrial junction. It was then exchanged for a 0.035 inch J-wire. A subcutaneous pocket was then created at the infraclavicular fossa using sharp and blunt dissection. The pocket was then irrigated with copious amounts of dilute antibiotic solution. A tunnel was made between the pocket and the venotomy site, through which the 6-Cameroonian port catheter was placed. The [employer] Smart port CT was placed in the pocket. Using the previous measurement, the catheter was cut to length. The venotomy was sequentially dilated to accept a peel-away sheath. The catheter was advanced to the peel-away sheath. Peel-away sheath was removed. Spot radiograph confirmed that the catheter tip is located at the superior cavoatrial junction. The port was accessed and found to flush and aspirate freely. The port incision was closed using a deep layer of interrupted 3-0 Vicryl suture and Dermabond. The small venotomy incision was closed with Dermabond. After closure, percutaneous port access was performed. It flushed and aspirated freely. It was packed with heparin. RADIATION DOSE: Ka,r=65 mGy COMPLICATIONS: None SPECIMENS REMOVED: As described above. ESTIMATED BLOOD LOSS: Less than 3 mL BLOOD PRODUCTS ADMINISTERED: None GRAFTS/IMPLANTS: None IMPRESSION: 1. Existing subcutaneous right chest port with catheter tip terminating at the superior cavoatrial junction with surrounding fibrin sheath. 2. Successful removal of the subcutaneous right chest port. 3. Post removal radiograph demonstrates removal of the entire port without evidence of retained foreign body. 4. Successful placement new right chest port with right internal jugular approach central venous catheter tip at superior cavoatrial junction PLAN: - After post sedation monitoring, patient will be discharged home. - Patient has been instructed to not submerge the incision until it has completely healed. [facility]-[id number] Procedure Note [facility], Radiology Results Incoming - 11/21/2017 4:28 PM CDT PERFORMING RADIOLOGIST: Hamilton Negro MD ASSISTANTS: None ANESTHESIA TIME: General anesthesia provided by the anesthesiology service. Lidocaine 1% and lidocaine 1% mixed epinephrine were used for local anesthetic. 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 Chronic anemia. Right chest port which would flush but not aspirate POST PROCEDURE DIAGNOSIS: Status post subcutaneous right chest port venogram, removal, and replacement. PROCEDURE: Existing right chest port venogram. Subcutaneous right chest port removal. Placement new right chest port. TECHNIQUE: Written informed consent was obtained prior to the procedure. The patient was placed in a supine position on the procedure table. The right chest was sterilely prepared and draped in the routine manner. All elements of maximal sterile barrier technique were followed. All catheters were flushed twice via a 0.2 um filter. All access was performed via a 0.2 um filter. A clin asst fluoroscopic image of the chest was then obtained. The existing port was accessed. Blood could not be aspirated. Venogram was performed which demonstrated significant reflux of contrast along the length of the catheter into the superior vena cava with catheter associated globular filling defect, compatible with a fibrin sheath. Lidocaine 1% and lidocaine 1% mixed with epinephrine were used for local anesthetic. Due to the location of the existing port pocket, it was decided to place a pocket more superiorly over the second rib to minimize port movement when the patient changes from supine to upright positioning. A skin incision was made over the indwelling subcutaneous right chest port, and using combination of sharp-blunt dissection, the port was freed and removed. The pocket incision was irrigated with normal saline and closed using a deep to superficial layer of interrupted 3-0 Vicryl suture and Dermabond. Fluoroscopic imaging of the chest following port removal demonstrates no complications. The patient tolerated the procedure well. Using ultrasound guidance, the right internal jugular vein was punctured with a 21-gauge needle allowing placement of a 0.018 inch guidewire. The needle was removed and a micropuncture sheath was then placed over the guidewire. The guidewire was used to measure the location of the superior cavoatrial junction. It was then exchanged for a 0.035 inch J-wire. A subcutaneous pocket was then created at the infraclavicular fossa using sharp and blunt dissection. The pocket was then irrigated with copious amounts of dilute antibiotic solution. A tunnel was made between the pocket and the venotomy site, through which the 6-Cameroonian port catheter was placed. The [employer] Smart port CT was placed in the pocket. Using the previous measurement, the catheter was cut to length. The venotomy was sequentially dilated to accept a peel-away sheath. The catheter was advanced to the peel-away sheath. Peel-away sheath was removed. Spot radiograph confirmed that the catheter tip is located at the superior cavoatrial junction. The port was accessed and found to flush and aspirate freely. The port incision was closed using a deep layer of interrupted 3-0 Vicryl suture and Dermabond. The small venotomy incision was closed with Dermabond. After closure, percutaneous port access was performed. It flushed and aspirated freely. It was packed with heparin. RADIATION DOSE: Ka,r=65 mGy COMPLICATIONS: None SPECIMENS REMOVED: As described above. ESTIMATED BLOOD LOSS: Less than 3 mL BLOOD PRODUCTS ADMINISTERED: None GRAFTS/IMPLANTS: None IMPRESSION: 1. Existing subcutaneous right chest port with catheter tip terminating at the superior cavoatrial junction with surrounding fibrin sheath. 2. Successful removal of the subcutaneous right chest port. 3. Post removal radiograph demonstrates removal of the entire port without evidence of retained foreign body. 4. Successful placement new right chest port with right internal jugular approach central venous catheter tip at superior cavoatrial junction PLAN: - After post sedation monitoring, patient will be discharged home. - Patient has been instructed to not submerge the incision until it has completely healed. [facility]-[id number] Performing Organization Address [facility]/[place] [address] * Partial thromboplastin time, activated (11/08/2017 2:13 PM CDT) PTT 29.4 23.0 - 36.0 sec [facility] DEPARTMENT OF Comment: PATHOLOGY AND PTT therapeutic range for [employer] MEDICINE unfractionated heparin is 61.0-112.0 seconds which corresponds to Anti-Xa 0.3-0.7 U/ml. Specimen Blood Performing Organization Address [facility]/[employer] Phone Number [facility] DEPARTMENT [address] [address] PATHOLOGY AND GENOMIC MEDICINE * Prothrombin time with INR (11/08/2017 2:13 PM CDT) Prothrombin time 13.1 12.0 - 15.0 sec [facility] DEPARTMENT OF PATHOLOGY AND GENOMIC MEDICINE INR 1.0 [facility] DEPARTMENT OF Comment: PATHOLOGY AND The International Normalized GENOMIC MEDICINE Ratio (INR) is a therapeutic monitoring tool for patients who are stable on oral anticoagulant therapy. An INR of 2.0-3.0 is suggested for deep vein thrombosis/pulmonary embolism. Specimen Blood Performing Organization Address [facility]/[employer] Phone Number [facility] DEPARTMENT [address] [address] PATHOLOGY AND GENOMIC MEDICINE * Estimated GFR (11/08/2017 10:54 AM CDT) Only the most recent of 8 results within the time period is included. GFR Non Af Amer 71 mL/min/1.73 m2 [facility] DEPARTMENT OF PATHOLOGY AND GENOMIC MEDICINE GFR Af Amer 87 mL/min/1.73 m2 [facility] DEPARTMENT OF Comment: PATHOLOGY AND Chronic kidney disease: <60 GENOMIC MEDICINE mL/min/1.73m2 Kidney failure: <15 mL/min/1.73m2 The estimated GFR is calculated from the IDMS-traceable Modification of Diet in Renal Disease Equation. The accuracy of the calculation is poor when the creatinine is normal. Calculated values >90 mL/min/1.73m2 are not reported. This equation has not been validated in children (<18 years), women, the elderly (>70 years), or ethnic groups other than Caucasians and Americans. Specimen Plasma specimen Performing Organization Address City/[facility]/[place] [address] PATHOLOGY AND [employer] MEDICINE * Smear review (10/03/2017 10:28 AM CDT) Only the most recent of 6 results within the time period is included. Platelet slide review [place] adequate [facility] DEPARTMENT OF PATHOLOGY AND GENOMIC MEDICINE Anisocytosis Moderate [facility] DEPARTMENT OF PATHOLOGY AND GENOMIC MEDICINE Polychromasia Moderate [facility] DEPARTMENT OF PATHOLOGY AND GENOMIC MEDICINE Tear drop cells Occasional [facility] DEPARTMENT OF PATHOLOGY AND GENOMIC MEDICINE Spherocytes Occasional [facility] DEPARTMENT OF PATHOLOGY AND GENOMIC MEDICINE Ovalocytes Moderate [facility] DEPARTMENT OF PATHOLOGY AND GENOMIC MEDICINE Enlarged platelets Moderate (A) [facility] DEPARTMENT OF PATHOLOGY AND GENOMIC MEDICINE Giant platelets Occasional [facility] DEPARTMENT OF PATHOLOGY AND GENOMIC MEDICINE Toxic granulation Slight [facility] DEPARTMENT OF PATHOLOGY AND GENOMIC MEDICINE Performing Organization Address [facility] [place] [address] PATHOLOGY AND [employer] [facility]ICINE * Magnesium level (10/03/2017 10:28 AM CDT) Only the most recent of 2 results within the time period is included. Magnesium 1.8 1.6 - 2.4 mg/dL [facility] DEPARTMENT PATHOLOGY AND GENOMIC MEDICINE Specimen Plasma specimen Performing Organization Address City/[facility]/[place] [address] PATHOLOGY AND [employer] [facility] * Outpatient EEG (08/14/2017 1:38 PM CDT) Narrative Performed At EEG AWAKE/DROWSY LESS THAN 41 MIN Date of Service: 08/14/2017 Awake Recording: The occipital dominant rhythm is 9-10 Hz. 18-22 Hz activity is present in all regions. Sleep Recording:No epileptiform activity was recorded. Hyperventilation: Not performed. Photic Stimulation: No abnormality elicited. Impression The background activity is within the range of normal variation. No lateralized or epileptiform activity was recorded. ICD-10 Code: R56.9 * MRA Neck Wo Contrast (06/28/2017) Narrative Performed At * MRA Head Wo Contrast (06/28/2017) Narrative Performed At * MRI Brain Wo Contrast (06/26/2017) Narrative Performed At * Peripheral smear (05/30/2017 5:33 AM [employer]) Peripheral smear Done [facility] DEPARTMENT OF Comment: PATHOLOGY AND Peripheral smear is located in [facility] H[facility], second floor of [facility]. Performing Organization Address City/[facility]/[place] [address] PATHOLOGY AND [employer] MEDICINE * LDH (05/29/2017 5:11 PM [employer]) LDH 177 87 - 225 U/L [facility] DEPARTMENT OF PATHOLOGY AND GENOMIC MEDICINE Specimen Plasma specimen Performing Organization Address [facility]/[place] [address] PATHOLOGY AND [employer] MEDICINE * Haptoglobin (05/29/2017 5:11 PM [employer]) Haptoglobin 132 30 - 200 mg/dL [facility] DEPARTMENT OF PATHOLOGY AND GENOMIC MEDICINE Specimen Plasma specimen Performing Organization Address City/[facility]/[place] [address] PATHOLOGY AND [employer] MEDICINE * Prepare RBC (05/29/2017 9:40 AM [employer]) Only the most recent of 2 results within the time period is included. Product name Red Cells AS1 Leukored Irrad [facility] DEPARTMENT OF PATHOLOGY AND GENOMIC MEDICINE Unit number [id number] [facility] DEPARTMENT OF PATHOLOGY AND GENOMIC MEDICINE Product code [id number] [facility] DEPARTMENT OF PATHOLOGY AND GENOMIC MEDICINE Dispense status Transfused [facility] DEPARTMENT OF PATHOLOGY AND GENOMIC MEDICINE Blood expiration date [id number] [facility] DEPARTMENT OF PATHOLOGY AND GENOMIC MEDICINE Blood type code 5100 [facility] DEPARTMENT OF PATHOLOGY AND GENOMIC MEDICINE Blood type O POSITIVE [facility] DEPARTMENT OF PATHOLOGY AND GENOMIC MEDICINE Performing Organization Address City/[facility]/Zipcode Phone Number [facility] [address] [place] [address] PATHOLOGY AND GENOMIC MEDICINE * Type and screen (05/29/2017 9:40 AM [employer]) ABO grouping O [facility] DEPARTMENT OF PATHOLOGY AND GENOMIC MEDICINE Rh type POS [facility] DEPARTMENT OF PATHOLOGY AND GENOMIC MEDICINE Antibody screen (gel) NEG [facility] DEPARTMENT OF PATHOLOGY AND GENOMIC MEDICINE Specimen Blood Performing Organization Address [facility]/[employer] Phone Number [facility] [address] [place] [address] PATHOLOGY AND GENOMIC MEDICINE * IR Port Removal (05/16/2017 3:56 PM [employer]) Narrative Performed At PROCEDURE: RADIANT Port-A-Cath removal Performing Radiologist: Adarsh Esqueda MD Assistants: None 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 IMPRESSION: Successful removal of a Port-A-Cath. Location: Right subclavian/anterior chest wall PLAN: Follow-up with PCP for wound check as needed. PROCEDURE SUMMARY: Port-A-Cath removal PROCEDURE DETAILS: Pre-procedure: Comparison studies: 2 view chest from 03/22/2017 Written and informed consent for the procedure and monitored conscious sedation was obtained from the patient. Prophylactic antibiotics: None Preparation: The right anterior chest wall was prepared and draped using all elements of maximal sterile barrier technique including sterile gloves, sterile gown, catheter, mask, large sterile sheet, sterile ultrasound probe cover, hand hygiene and cutaneous antisepsis using chlorhexidine. Anesthesia/Sedation: Level of anesthesia: General Anesthesia Medications used: Fentanyl and Versed, 1% lidocaine and lidocaine with epinephrine Anesthesia administration: Anesthesiologist/ORNAMENT STITCHER Duration of intraservice jzaz-ql-urziooczkdeaoi/sedation: N/A Port removal: Local anesthesia was administered. An incision was made at the site of the indwelling Port-A-Cath. The port was exposed and removed using a combination of sharp and blunt dissection. The catheter was removed in its entirety. Closure: Hemostasis was achieved with manual compression. The incision was closed using a deep layer of interrupted 3-0 Vicryl sutures, 4-0 Monocryl running subcuticular sutures and Dermabond. Sterile bandages were applied. Incision closure technique: Absorbable suture and Dermabond Contrast: Contrast agent: None Contrast volume: N/A Radiation dose: 1 mGy Additional details: Additional description of procedure: N/A Additional findings: N/A Equipment details: N/A Estimated blood loss: Less than 10 cc [facility]-[id number] Procedure Note 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 IMPRESSION: Successful removal of a Port-A-Cath. Location: Right subclavian/anterior chest wall PLAN: Follow-up with PCP for wound check as needed. PROCEDURE SUMMARY: Port-A-Cath removal PROCEDURE DETAILS: Pre-procedure: Comparison studies: 2 view chest from 03/22/2017 Written and informed consent for the procedure and monitored conscious sedation was obtained from the patient. Prophylactic antibiotics: None Preparation: The right anterior chest wall was prepared and draped using all elements of maximal sterile barrier technique including sterile gloves, sterile gown, catheter, mask, large sterile sheet, sterile ultrasound probe cover, hand hygiene and cutaneous antisepsis using chlorhexidine. Anesthesia/Sedation: Level of anesthesia: General Anesthesia Medications used: Fentanyl and Versed, 1% lidocaine and lidocaine with epinephrine Anesthesia administration: Anesthesiologist/ORNAMENT STITCHER Duration of intraservice kcnr-or-okjt anesthesia/sedation: N/A Port removal: Local anesthesia was administered. An incision was made at the site of the indwelling Port-A-Cath. The port was exposed and removed using a combination of sharp and blunt dissection. The catheter was removed in its entirety. Closure: Hemostasis was achieved with manual compression. The incision was closed using a deep layer of interrupted 3-0 Vicryl sutures, 4-0 Monocryl running subcuticular sutures and Dermabond. Sterile bandages were applied. Incision closure technique: Absorbable suture and Dermabond Contrast: Contrast agent: None Contrast volume: N/A Radiation dose: 1 mGy Additional details: Additional description of procedure: N/A Additional findings: N/A Equipment details: N/A Estimated blood loss: Less than 10 cc [facility]-[id number] Performing Organization Address City/State/Zipcode Phone Number [facility] [address] [place] [address] * IR Port Placement (05/16/2017 3:56 PM [employer]) Narrative Performed At PROCEDURE: RADIANT Subcutaneous right chest port placement Performing Radiologist: Adarsh Esqueda MD Assistants: None Pre Procedure Diagnosis: I78.0 Hereditary hemorrhagic telangiectasia, 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 IMPRESSION: 1.Technically successful fluoroscopic-guided placement of a subcutaneous power-injectable, single lumen right chest port via the right internal jugular vein. The tip of the catheter lies at the right atrium/superior vena cava junction. 2.The port was not left accessed. 3.The right internal jugular vein is patent and compressible on preprocedure ultrasound. PLAN: The port is ready for immediate use. PROCEDURE SUMMARY: 1.Venous access with ultrasound guidance 2.Port insertion under fluoroscopic guidance PROCEDURE DETAILS: Pre-procedure: Comparison studies: None Written and informed consent for the procedure and monitored conscious sedation was obtained from the patient. Prophylactic antibiotics: Ancef was given approximately 1 hour prior to the procedure. Preparation: The right anterior chest wall and neck was prepared and draped using all elements of maximal sterile barrier technique including sterile gloves, sterile gown, catheter, mask, large sterile sheet, sterile ultrasound probe cover, hand hygiene and cutaneous antisepsis using chlorhexidine. Anesthesia/Sedation: Level of anesthesia: General Anesthesia Medications used: Fentanyl and Versed, 1% lidocaine and lidocaine with epinephrine Anesthesia administration: Anesthesiologist/ORNAMENT STITCHER Duration of intraservice [id number]-vsbw anesthesia/sedation: N/A Access: Local anesthesia was administered. The right internal jugular vein was evaluated with preprocedure ultrasound and noted to be patent. Real-time ultrasound was used to visualize needle entry into the vessel and a permanent image was stored. A 0.035 inch J-wire was advanced into the inferior vena cava and an image was archived. Access technique: 5 Cameroonian micropuncture set Venography: Vein catheterized: N/A Indication for venography: Not performed Findings: N/A Port placement: An incision was made over the chest wall, and a subcutaneous pocket was created using blunt dissection. The catheter was tunneled subcutaneously to the venous access site and trimmed to the appropriate length. The port was then inserted into the pocket and the catheter was advanced via the peel-away sheath into the vein under fluoroscopic guidance. An image was archived demonstrating the position of the catheter tip. Port placed: [employer] Smart Port Catheter size: 8 Cameroonian Catheter flush: Heparin (100 units/mL) Closure: The incision was closed using a deep layer of interrupted 3-0 Vicryl sutures, 4-0 Monocryl running subcuticular sutures and Dermabond. Sterile bandages were applied. Access site closure technique: Dermabond Incision closure technique: Absorbable suture and Dermabond Contrast: Contrast agent: None Contrast volume: N/A Radiation dose: 1 mGy Additional details: Additional description of procedure: The superior aspect of the subcutaneous pocket previously occupied by the prior Port-A-Cath was used to place the new Port-A-Cath. The new port catheter was sutured in place to prevent the port from flipping or from excessive movement. Additional findings: N/A Equipment details: N/A Estimated blood loss: Less than 10 cc [facility]-[id number] Procedure Note 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 IMPRESSION: 1. Technically successful fluoroscopic-guided placement of a subcutaneous power- injectable, single lumen right chest port via the right internal jugular vein. The tip of the catheter lies at the right atrium/superior vena cava junction. 2. The port was not left accessed. 3. The right internal jugular vein is patent and compressible on preprocedure ultrasound. PLAN: The port is ready for immediate use. PROCEDURE SUMMARY: 1. Venous access with ultrasound guidance 2. Port insertion under fluoroscopic guidance PROCEDURE DETAILS: Pre-procedure: Comparison studies: None Written and informed consent for the procedure and monitored conscious sedation was obtained from the patient. Prophylactic antibiotics: Ancef was given approximately 1 hour prior to the procedure. Preparation: The right anterior chest wall and neck was prepared and draped using all elements of maximal sterile barrier technique including sterile gloves, sterile gown, catheter, mask, large sterile sheet, sterile ultrasound probe cover, hand hygiene and cutaneous antisepsis using chlorhexidine. Anesthesia/Sedation: Level of anesthesia: General Anesthesia Medications used: Fentanyl and Versed, 1% lidocaine and lidocaine with epinephrine Anesthesia administration: Anesthesiologist/ORNAMENT STITCHER Duration of intraservice beyc-ts-yivs anesthesia/sedation: N/A Access: Local anesthesia was administered. The right internal jugular vein was evaluated with preprocedure ultrasound and noted to be patent. Real-time ultrasound was used to visualize needle entry into the vessel and a permanent image was stored. A 0.035 inch J-wire was advanced into the inferior vena cava and an image was archived. Access technique: 5 Cameroonian micropuncture set Venography: Vein catheterized: N/A Indication for venography: Not performed Findings: N/A Port placement: An incision was made over the chest wall, and a subcutaneous pocket was created using blunt dissection. The catheter was tunneled subcutaneously to the venous access site and trimmed to the appropriate length. The port was then inserted into the pocket and the catheter was advanced via the peel-away sheath into the vein under fluoroscopic guidance. An image was archived demonstrating the position of the catheter tip. Port placed: [employer] Smart Port Catheter size: 8 Cameroonian Catheter flush: Heparin (100 units/mL) Closure: The incision was closed using a deep layer of interrupted 3-0 Vicryl sutures, 4- 0 Monocryl running subcuticular sutures and Dermabond. Sterile bandages were applied. Access site closure technique: Dermabond Incision closure technique: Absorbable suture and Dermabond Contrast: Contrast agent: None Contrast volume: N/A Radiation dose: 1 mGy Additional details: Additional description of procedure: The superior aspect of the subcutaneous pocket previously occupied by the prior Port-A-Cath was used to place the new Port-A-Cath. The new port catheter was sutured in place to prevent the port from flipping or from excessive movement. Additional findings: N/A Equipment details: N/A Estimated blood loss: Less than 10 cc [facility]-[id number] Performing Organization Address City/State/[place] Phone Number [facility] [address] [place] [address] * CRITICAL CARE (05/10/2017 10:55 PM [employer]) Narrative Performed At Carrie Loaiza MD 05/10/2017 10:55 PM Critical Care Performed by: CARRIE LOAIZA Authorized by: CARRIE LOAIZA Critical care provider statement: Critical care time (minutes):35 Critical care was necessary to treat or prevent imminent or life-threatening deterioration of the following conditions:Respiratory failure and shock Critical care was time spent personally by me on the following activities:Review of old charts, re-evaluation of patient's condition, pulse oximetry, ordering and review of radiographic studies, ordering and review of laboratory studies, ordering and performing treatments and interventions, discussions with consultants, development of treatment plan with patient or surrogate, evaluation of patient's response to treatment and examination of patient after 04/20/2017 Insurance Payer Benefit Subscriber ID Type Phone Address Plan / Group MEDICARE MEDICARE xxxxxxxxxx Medicare [place], [place] PART A AND B [employer] xxxxxxxxxx Commercial [employer] [place] Advance Directives Patient has advance care planning documents on file. For more information, ovidio arias contact: Clay Santana [address] [place] [address]
--- OUTSIDE RECORDS SUMMARY | 2018-04-21 21:06 | XMS REPORT ---
Author Author Miguel Johnson Organization [employer] Address Unknown Phone Unavailable Care Team Providers Care Meat Process Worker Name Role Phone Miguel Johnson Unavailable Allergies No Known Allergies Problems Problem Type Condition Code Onset Dates Condition Status Problem High risk medication use Z79.899 Active Problem Neuropathy G62.9 Active Problem Chronic pain syndrome G89.4 Active Problem HHT (hereditary hemorrhagic telangiectasia) I78.0 Active Medications No Known Medications Results No Known Results Summary Purpose e[employer] Submission
--- OUTSIDE RECORDS SUMMARY | 2018-04-21 21:06 | XMS REPORT | Clinical Summary ---
Author Author R[facility]St[facility] Address Unknown Phone Unavailable Care Team Providers Care Human Service Specialist Name Role Phone Christopher Villaseñor MD PCP Allergies Comments Active Allergy Reactions Severity Noted Date Aspirin 01/09/2016 Needs premed with Prednisone and Benadryl (Sneezing) Iodinated Contrast- Oral 01/28/2013 And Iv Dye Metoprolol Succinate Nausea And 05/27/2013 Vomiting Medications End Date Status Medication Sig Dispensed Refills Start Date Active HYDROcodone-acetaminophen Take 1 tablet 0 (NORCO 5-325) 5-325 mg by mouth per tablet every 6 (six) hours as needed. Active nitroglycerin (NITROSTAT) Place 0.4 mg 0 0.4 MG SL tablet under the tongue every 5 (five) minutes as needed for Chest pain. Active esomeprazole (NEXIUM) 40 Take 40 mg by 0 MG capsule mouth 2 (two) times daily . Active BEVACIZUMAB (AVASTIN IV) Inject 0 intravenously . Active iron dextran (DEXFERRUM, Inject 0 INFED) IVPB intravenously . Active zolpidem (AMBIEN) 10 mg Take 10 mg by 0 tablet mouth every night as needed for Insomnia. 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 Stroke 02/03/2013 TIA (transient ischemic attack) 01/28/2013 Immunizations Name Dates Previously Given Next Due Influenza TIV (IM) 02/06/2013 Pneumococcal 02/06/2013 Polysaccharide (Pneumovax) Family History Medical History Relation Name Comments Other Father Hereditary hemorrhagic telangectasia Other Son Hereditary hemorrhagic telangectasia Other Siblings with Hereditary hemorrhagic telangectasia Relation Name Status Comments Father Son Social History Date Tobacco Use Types Packs/Day Years Used Quit: 04/01/1993 Former Smoker Alcohol Use Drinks/Week oz/Week Comments No Sex Assigned at Date Recorded Not on file Industry Job Start Date Occupation Not on file Not on file Not on file Travel End Travel History Travel Start No recent travel history available. Last Filed Vital Signs Not on file Plan of Treatment Not on file Results Not on fileafter 04/20/2017 Insurance Payer Benefit Subscriber ID Type Phone Address Plan / Group MEDICARE MEDICARE A xxxxxxxxxx Medicare B MCR SUPPLEMENT/INDIVIDUAL GENERIC xxxxxxxxx [employer] MEDICARE SUPPLEMENT Advance Directives For more information, please contact: [address] [address] Date Inactivated Comments Code Status Date Activated 01/17/2016 7:03 PM Full Code 01/13/2016 3:52 PM This code status was determined by: Patient 01/13/2016 1:33 PM Full Code 01/13/2016 12:11 PM This code status was determined by: Patient 02/19/2014 11:59 AM Full Code 02/16/2014 2:39 AM This code status was determined by: Patient 05/27/2013 5:40 PM All possible means of support, including: cardiac massage, mechanical ventilation, and defibrillation will be used to support life. Code ONE 05/26/2013 9:32 PM 02/06/2013 7:30 PM All possible means of support, including: cardiac massage, mechanical ventilation, and defibrillation will be used to support life. Code ONE 01/28/2013 6:17 PM
--- OUTSIDE RECORDS SUMMARY | 2018-04-21 21:06 | XMS REPORT ---
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
--- OUTSIDE RECORDS SUMMARY | 2018-04-21 21:06 | XMS REPORT | Continuity of Care Document ---
Author Author [facility] Address Unknown Phone Unavailable Problems Problem Status Onset Date Classification Date Reported Comments Source High risk medication use Active Problem 10/29/2017 Jarrod Rosas Neuropathy Active Problem 10/29/2017 Jarrod Rosas Chronic pain syndrome Active Problem 10/29/2017 Jarrod Rosas HHT Active Problem 10/29/2017 Jarrod Rosas Trochanteric bursitis of right hip Active Problem 10/29/2017 Jarrod Rosas Insomnia, unspecified type Active Problem 10/29/2017 Jarrod Isabeler Trochanteric bursitis of left hip Active Problem 10/29/2017 Jarrod Rosas Medications Medication Details Route Status Patient Instructions Ordering Provider Order Date Source Allergies, Adverse Reactions, Alerts Substance Category Reaction Severity Reaction type Status Date Reported Comments Source Immunizations Immunization Date Given Site Status Last Updated Comments Source Results Order Name Results Value Reference Range Date Interpretation Comments Source Vital Signs Vital Sign Value Date Comments Source Encounters Location Location Details Encounter Type Encounter Number Reason For Visit Attending Provider ADM Date DC Date Status Source Procedures Procedure Code Date Perfomer Comments Source
--- NOTE | 2018-04-21 23:10 | Diagnostic Imaging Report ---
EXAMINATION: RIBS UNILAT W/CXR- HOPD INDICATION: Fall. COMPARISON: None FINDINGS: AP view TUBES and LINES: Right chest wall port with catheter tip overlying the cavoatrial junction. LUNGS: Lungs are well inflated. Serpentine radiopaque densities project over both inferior lung boyce and may represent embolization materialgiven embolization coils. There is no evidence of pneumonia or pulmonary edema. PLEURA: No pleural effusion or pneumothorax. HEART AND MEDIASTINUM: Embolization coil projects over the cardiac silhouette lower lung boyce. The cardiomediastinal silhouette is unremarkable. BONES AND SOFT TISSUES: Limited evaluation secondary to overlying soft tissue attenuation and positioning. No acute displaced rib fractures. Breast implants. UPPER ABDOMEN: No free air under the diaphragm. IMPRESSION: No acute thoracic abnormality. No acute displaced rib fractures. Signed by: DR. Rajesh Esqueda MD on 04/21/2018 11:07 PM
[2018-04-21] MEDS ORDERED: ONDANSETRON ODT8 MG PO (23:23)
[2018-04-21] MEDS ORDERED: ONDANSETRON HCL 4 MG ORAL DISINTEGRATING TAB PO ONE (23:30)
== END 2018-04-21 23:35 | disposition home or self-care (01) ==
LOC: FSED 21:03
DX: S20.211A Contusion of right front wall of thorax, initial encounter (principal); S40.012A Contusion of left shoulder, initial encounter; W01.0XXA Fall on same level from slipping, tripping and stumbling without subsequent striking against object, initial encounter; Y92.512 Supermarket, store or market as the place of occurrence of the external cause
CPT/HCPCS: 71101; 99283

== ENCOUNTER 2018-07-24 15:58 | Emergency (ER) | payer MEDICARE, OTHER ==
[~2018-07-24] VITALS: Ht 162.6 cm; Wt 68.0 kg
[~2018-07-24 15:58] MED LIST changes: +ONDANSETRON ODT8 MG PO
--- OUTSIDE RECORDS SUMMARY | 2018-07-24 16:02 | XMS REPORT | Clinical Summary ---
Author Author RICHIE [facility]Id[facility]99[facility] Address Unknown Phone Unavailable Care Team Providers Care Billing Typist Name Role Phone Christopher iVllaseñor MD PCP Allergies Comments Active Allergy Reactions [...] Not on file Results Not on fileafter 07/23/2017 Insurance Payer Benefit Subscriber ID Type Phone Address Plan / Group MEDICARE MEDICARE A xxxxxxxxxx Medicare B MCR SUPPLEMENT/INDIVIDUAL GENERIC xxxxxxxxx [employer] MEDICARE SUPPLEMENT Advance Directives For more information, please contact: [address] [address] Date Inactivated Comments Code Status [...]
--- OUTSIDE RECORDS SUMMARY | 2018-07-24 16:02 | XMS REPORT ---
Author Author [facility] Address Unknown Phone Unavailable Care Team Providers Care Mine Administrator Supervisor Name Role Phone Hermilo WELCH Unavailable Unavailable Problems This patient has no known problems. Allergies, Adverse Reactions, Alerts This patient has no known allergies or adverse reactions. Medications This patient has no known medications. Results Test Description Test Time Test Comments Text Results Atomic Results Result Comments RIBS UNILAT W/CXR- HOPD 2018-04-21 23:00:00 [place] [address] Patient Name: BUFFY HARRY MR #: [id number] : 1950 Age/Sex: 67/F Req #: [id number] Adm Physician: Ordered by: JESSICA WELCH MD Report #: [id number] Location: [facility] Room/Bed: Procedure: [id number] HOPD/RIBS UNILAT W/CXR- HOPD Exam Date: 04/21/18 Exam Time: 2220 REPORT STATUS: Signed EXAMINATION: RIBS UNILAT W/CXR- HOPD INDIC ATION: Fall. COMPARISON: None FINDINGS: AP view TUBES and LINES: Right chest wall port with catheter tip overlying the cavoatrial junction. LUNGS: Lungs are well inflated. Serpentine radiopaque densities project over both inferior lung boyce and may represent embolization materialgiven embolization coils. There is no evidence of pneumonia or pulmonary edema. PLEURA: No pleural effusion or pneumothorax. HEART AND MEDIASTINUM: Embolization coil projects over the cardiac silhouette lower lung boyce. The cardiomediastinal silhouette is unremarka ble. BONES AND SOFT TISSUES: Limited evaluation secondary to overlying soft tissue attenuation and positioning. No acute displaced rib fractures. Breast implants. UPPER ABDOMEN: No free air under the diaphragm. IMPRESSION: No acute thoracic abnormality. No acute displaced rib fractures. Signed by: DR. Rajesh Beltrán MD on 04/21/2018 11:07 PM Dictated By: RAJESH BELTRÁN MD Transcribed By: KYLEE on 04/21/180 COPY TO: JESSICA WELCH MD
--- OUTSIDE RECORDS SUMMARY | 2018-07-24 16:02 | XMS REPORT | Clinical Summary ---
Author Author [facility] Organization [facility] Address Unknown Phone Unavailable Care Team Providers Care Research Support Specialist Name Role Phone Christopher Villaseñor MD [...] Medication Sig Dispensed Refills Start Date Active lidocaine-prilocaine Apply 1 0 (EMLA) cream application topically as needed. Active furosemide (LASIX) 20 MG Take 20 mg by 0 tablet mouth as needed (leg swelling). Active cholecalciferol, vitamin Take 5,000 0 D3, (VITAMIN D3) 1,000 Units by unit tablet mouth daily. Active HYDROcodone-acetaminophen Take 1 tablet 0 (NORCO) 10-325 mg per by mouth 3 tablet (three) times a day. Active cyanocobalamin-cobamamide Place 1 0 (B12) 5,000-100 mcg tablet under lozenge the tongue daily. Active multivitamin with Take 1 tablet 0 [...] mouth 2 8 (two) times a day. 12/09/2018 Active pantoprazole (PROTONIX) Take 1 tablet 180 tablet 3 40 MG EC tablet (40 mg total) 8 by mouth 2 (two) times a day. Active zolpidem tartrate (AMBIEN Take 1 tablet 0 ORAL) by mouth nightly. Active FLUoxetine (PROzac) 20 MG Take 20 mg by 0 capsule mouth daily. 05/26/2018 Discontinued FLUoxetine (PROzac) 20 MG Take 20 mg by 3 capsule mouth every 6 morning. 11/20/2017 Discontinued zolpidem (AMBIEN) 5 MG Take 5 mg by 0 tablet mouth nightly as needed for sleep. 05/26/2018 Discontinued melatonin tablet Take 10 mg by 0 mouth as needed. 09/12/2017 Discontinued pantoprazole (PROTONIX) Take 1 tablet 60 tablet 11 40 MG EC tablet (40 mg total) 7 by mouth 2 (two) times a day. 12/09/2017 Discontinued pantoprazole (PROTONIX) Take 1 tablet 60 tablet 3 40 MG EC tablet (40 mg total) 7 by mouth 2 (two) times a day. 09/19/2017 Discontinued memantine (NAMENDA) 5 MG Take 1 tablet 60 tablet 11 tablet (5 mg total) 8 by mouth 2 (two) times a day. 09/19/2017 Discontinued pantoprazole (PROTONIX) TAKE 1 TABLET 60 tablet 8 40 MG EC tablet BY MOUTH 8 TWICE A DAY 11/20/2017 Discontinued docosahexanoic acid/epa Take 1 0 (FISH OIL ORAL) capsule by mouth daily. Ernul 05/26/2018 Discontinued traZODone (DESYREL) 50 MG Take 50 mg by 0 tablet mouth 8 nightly. 05/26/2018 Discontinued FLUoxetine (PROzac) 10 MG TAKE 1 3 capsule CAPSULE TO BE 8 TAKEN WITH 20 MG ONCE A DAY ORALLY 05/26/2018 Discontinued amoxicillin-pot 0 clavulanate (AUGMENTIN) 8 875-125 mg per tablet 05/26/2018 Discontinued methylPREDNISolone 0 (MEDROL DOSEPAK) 4 mg 8 tablet 05/26/2018 Discontinued temazepam (RESTORIL) 15 Take 15 mg by 0 mg capsule mouth nightly 8 as needed. 07/01/2018 fexofenadine (RACHAEL) 60 Take 1 tablet 60 tablet 0 MG tablet (60 mg total) 9 by mouth 2 (two) times a day for 30 days. 07/01/2018 benzonatate (TESSALON) Take 1 90 capsule 0 200 MG capsule capsule (200 9 mg total) by mouth every 8 (eight) hours for 30 days. 06/05/2018 levoFLOXacin (LEVAQUIN) Take 1 tablet 3 tablet 0 500 MG tablet (500 mg 9 total) by mouth daily for 3 days. 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 Encounters Care Team Description Date Type Specialty Christopher Villaseñor MD Iron deficiency anemia due to chronic blood loss (Primary Dx); Hereditary hemorrhagic telangiectasia (HCC) 07/16/2018 Hospital Hematology and Oncology Encounter Tania Courtney NP 07/16/2018 Orders Only Hematology and Oncology Christopher Villaseñor MD 07/14/2018 Orders Only Hematology and Oncology Christopher Villaseñor MD 06/16/2018 Lab Lab Tania Courtney NP 06/02/2018 Orders Only Hematology and Oncology eRyes Mcmahon MD Daniel, Jamuna V, MD Dyspnea, unspecified type (Primary Dx); Hypoxia; Acute respiratory distress; Hereditary hemorrhagic telangiectasia (HCC); Pulmonary arteriovenous malformation 05/26/2018 Hospital Neurosurgery - Encounter 06/01/2018 Christopher Villaseñor MD Hereditary hemorrhagic telangiectasia (HCC) (Primary Dx); Iron deficiency anemia due to chronic blood loss 05/09/2018 Hospital Hematology and Oncology Encounter Christopher Villaseñor MD No Show 05/06/2018 Hospital Hematology and Oncology Encounter Christopher Villaseñor MD Hereditary hemorrhagic telangiectasia (HCC) (Primary Dx); Iron deficiency anemia due to chronic blood loss 04/08/2018 Hospital Hematology and Oncology Encounter Yesenia Trinh RN 04/02/2018 Orders Only Hematology and Oncology Christopher Villaseñor MD Canceled (Patient) 03/27/2018 [facility] Hematology and Oncology Encounter Christopher Villaseñor MD Hereditary hemorrhagic telangiectasia (HCC) (Primary Dx); Iron deficiency anemia due to chronic blood loss 02/27/2018 Hospital Hematology and Oncology Encounter Christopher Villaseñor MD Hereditary hemorrhagic telangiectasia (HCC) 02/27/2018 Orders Only Hematology and Oncology Tania Courtney NP 02/27/2018 Orders Only Hematology and Oncology Christopher Villaseñor MD 02/27/2018 Orders Only Hematology and Oncology Christopher Villaseñor MD Iron deficiency anemia secondary to blood loss (chronic) (Primary Dx); Hereditary hemorrhagic telangiectasia (HCC) 02/25/2018 Lab Lab Christopher Villaseñor MD Hereditary hemorrhagic telangiectasia (HCC) 02/25/2018 Orders Only Hematology and Oncology Tania Courtney, CLINICAL TRIALS NURSE 02/25/2018 Orders Only Hematology and Oncology Christopher Villaseñor MD 02/17/2018 Orders Only Hematology and Oncology Vaughn Givens RN 02/12/2018 Orders Only Oncology Christopher Villaseñor MD Hereditary hemorrhagic telangiectasia (HCC); Iron deficiency anemia due to chronic blood loss 01/15/2018 Hospital Hematology and Oncology Encounter Christopher Villaseñor MD Hereditary hemorrhagic telangiectasia (HCC) 01/15/2018 Orders Only Hematology and Oncology Kristy Keating, LUIS DANIEL 12/24/2017 Refill Obstetrics and Gynecology Christopher Villaseñor MD Iron deficiency anemia due to chronic blood loss; Hereditary hemorrhagic telangiectasia 12/18/2017 Hospital Hematology and Oncology Encounter Christopher Villaseñor MD 12/10/2017 Orders Only Hematology and Oncology Kurt Isaacs MD 12/09/2017 Lab Lab [place] [facility] 12/09/2017 Refill Gastroenterology Christopher Villaseñor MD Canceled [...] 09/30/2017 Hospital Hematology and Oncology Encounter Tania Courtney NP 09/30/2017 Orders Only Hematology and Oncology Ralf [...] cerebral arteries 08/14/2017 Hospital Neurology Encounter Tania Courtney NP 08/12/2017 Orders Only Hematology and Oncology Christopher Villaseñor MD Hereditary hemorrhagic telangiectasia; Iron deficiency anemia due to chronic blood loss 08/02/2017 Hospital Hematology and Oncology Encounter Ralf Hurley MD 07/30/2017 Transcribe Neurology Orders after 07/23/2017 Immunizations Name Dates Previously Given Next Due [...] Vital Signs Time Taken Vital Sign Reading 07/16/2018 10:45 AM CDT Blood Pressure 142/65 07/16/2018 10:45 AM CDT Pulse 69 07/16/2018 10:45 AM CDT Temperature 35.7 C (96.3 F) 07/16/2018 10:45 AM CDT Respiratory Rate 20 07/16/2018 10:45 AM CDT Oxygen Saturation 91% - Inhaled Oxygen - Concentration 07/16/2018 10:45 AM CDT Weight 67.9 kg (149 lb 11.1 oz) 07/16/2018 10:45 AM CDT Height 162.6 cm (5' 4") 07/16/2018 10:45 AM CDT Body Mass Index 25.69 Plan of Treatment Care Team Description Date Type Specialty Christopher Villaseñor MD [address] [place] [address] 08/26/2018 Appointment Hematology and Oncology Health Maintenance Due Date Last Done Comments BREAST CANCER SCREENING 2000 COLON CANCER SCREENING 2000 SHINGLES VACCINES (#1) 2000 PNEUMOCOCCAL 2015 POLYSACCHARIDE VACCINE AGE 65 AND OVER 65+ PNEUMOCOCCAL VACCINE 05/31/2018 05/31/2017, 01/02/2016 (2 of 2 - PPSV23) INFLUENZA VACCINE 10/30/2018 05/31/2017, 01/02/2016, 12/14/2013, Additional history exists Implants Device Identifier Shelf Expiration Date Model / Serial / Lot Implanted Type Area Manufactur er 08/29/2020 [id number] / / [id number] Port Imlpntbl Smart Port W/ Dtchd Implantabl N/A: N/A ANGIODYNAM 0.4ml 6.6fr 55cm W/ Sheath - e [employer] [id number] Ports or Implanted: 11/21/2017 (Quantity not Accessorie on file) s [id number] / / Dilator Baln Fxdwr [id number] Surgical N/A: N/A BSC 18-19-20mm Cre - [id number] Implants; ENDOSCOPY Implanted: 05/31/2017 (Quantity not Expanders; on file) Extenders; Surgical Wires Procedures Comments Procedure Name Priority Date/Time Associated Diagnosis ESTIMATED GFR STAT 07/16/2018 10:59 AM CDT MAGNESIUM LEVEL STAT 07/16/2018 Hereditary hemorrhagic 10:59 AM CDT telangiectasia (HCC) COMPREHENSIVE METABOLIC STAT 07/16/2018 Hereditary hemorrhagic PANEL 10:59 AM CDT telangiectasia (HCC) CBC WITH PLATELET AND STAT 07/16/2018 Hereditary hemorrhagic DIFFERENTIAL 10:59 AM CDT telangiectasia (HCC) URINALYSIS, AUTOMATED STAT 07/16/2018 Hereditary hemorrhagic WITH MICROSCOPY 10:59 AM CDT telangiectasia (HCC) HEPATIC FUNCTION PANEL Routine 06/16/2018 11:29 AM CDT ESTIMATED GFR Routine 06/16/2018 11:29 AM CDT FERRITIN LEVEL Routine 06/16/2018 11:29 AM CDT BASIC METABOLIC PANEL Routine 06/16/2018 11:29 AM CDT TOTAL IRON BINDING Routine 06/16/2018 CAPACITY 11:29 AM CDT ESTIMATED GFR Routine 06/01/2018 5:48 AM [employer] CBC HEMOGRAM Routine 06/01/2018 5:48 AM [employer] BASIC METABOLIC PANEL Routine 06/01/2018 5:48 AM [employer] XR CHEST 1 VW PORTABLE Routine 05/31/2018 8:50 PM [employer] CBC HEMOGRAM Routine 05/31/2018 4:45 AM [employer] ESTIMATED GFR Routine 05/31/2018 4:00 AM [employer] BASIC METABOLIC PANEL Routine 05/31/2018 4:00 AM [employer] ESTIMATED GFR Routine 05/30/2018 6:15 AM [employer] CBC HEMOGRAM Routine 05/30/2018 6:15 AM [employer] BASIC METABOLIC PANEL Routine 05/30/2018 6:15 AM [employer] CBC HEMOGRAM Routine 05/29/2018 5:00 AM [employer] ESTIMATED GFR Routine 05/29/2018 4:00 AM [employer] BASIC METABOLIC PANEL Routine 05/29/2018 4:00 AM [employer] ESTIMATED GFR Routine 05/28/2018 4:30 AM [employer] BASIC METABOLIC PANEL Routine 05/28/2018 4:30 AM [employer] CBC HEMOGRAM Routine 05/28/2018 4:30 AM [employer] ECHOCARDIOGRAM 2D Routine 05/27/2018 COMPLETE W MMODE SPECTRAL 7:00 AM [employer] COLOR DOPPLER ([id number]) ESTIMATED GFR Routine 05/27/2018 3:00 AM [employer] MAGNESIUM LEVEL Routine 05/27/2018 3:00 AM [employer] PHOSPHORUS LEVEL Routine 05/27/2018 3:00 AM [employer] HC COMPLETE BLD COUNT Routine 05/27/2018 W/AUTO DIFF 3:00 AM [employer] BASIC METABOLIC PANEL Routine 05/27/2018 3:00 AM [employer] CT ANGIOGRAM PE CHEST STAT 05/27/2018 2:32 AM [employer] LACTIC ACID LEVEL STAT 05/26/2018 8:30 PM [employer] ECG 12-LEAD STAT 05/26/2018 8:25 PM [employer] URINALYSIS SCREEN AND Routine 05/26/2018 MICROSCOPY, WITH REFLEX 8:20 PM [employer] TO CULTURE SODIUM LEVEL, URINE, Routine 05/26/2018 RANDOM 8:20 PM [employer] UREA NITROGEN, URINE, Routine 05/26/2018 RANDOM 8:20 PM [employer] CREATININE LEVEL, URINE, Routine 05/26/2018 RANDOM 8:20 PM [employer] URINE CULTURE Routine 05/26/2018 8:20 PM [employer] POC GLUCOSE Routine 05/26/2018 2:16 PM [employer] RESPIRATORY PATHOGEN Routine 05/26/2018 PANEL 2:07 PM [employer] INFLUENZA ANTIGEN TEST, Routine 05/26/2018 REFLEX NEGATIVE TO RPP 2:07 PM [employer] XR CHEST 1 VW PORTABLE STAT 05/26/2018 12:21 PM [employer] ARTERIAL BLOOD GAS STAT 05/26/2018 12:05 PM [employer] ESTIMATED GFR STAT 05/26/2018 11:41 AM [employer] PARTIAL THROMBOPLASTIN STAT 05/26/2018 TIME (PTT) 11:41 AM [employer] PROTHROMBIN TIME WITH INR STAT 05/26/2018 11:41 AM [employer] COMPREHENSIVE METABOLIC STAT 05/26/2018 PANEL 11:41 AM [employer] HC COMPLETE BLD COUNT STAT 05/26/2018 W/AUTO DIFF 11:41 AM [employer] BLOOD CULTURE, AEROBIC & Routine 05/26/2018 ANAEROBIC 11:41 AM [employer] W[place] CRITICAL CARE, E/M Routine 05/26/2018 30-74 MINUTES 11:10 AM [employer] GRAM STAIN STAT 05/09/2018 1:39 PM [employer] URINE CULTURE STAT 05/09/2018 1:39 PM [employer] COMPREHENSIVE METABOLIC Routine 05/09/2018 PANEL 11:38 AM [employer] ESTIMATED GFR Routine 05/09/2018 11:38 AM [employer] HC COMPLETE BLD COUNT STAT 05/09/2018 Hereditary hemorrhagic W/AUTO DIFF 11:28 AM [employer] telangiectasia (HCC) URINALYSIS SCREEN AND STAT 05/09/2018 MICROSCOPY, WITH REFLEX 10:43 AM [employer] TO CULTURE URINALYSIS, AUTOMATED STAT 05/09/2018 Hereditary hemorrhagic WITH MICROSCOPY 10:43 AM [employer] telangiectasia (HCC) MANUAL DIFFERENTIAL STAT 04/08/2018 10:34 AM [employer] ESTIMATED GFR STAT 04/08/2018 10:34 AM [employer] COMPREHENSIVE METABOLIC STAT 04/08/2018 Hereditary hemorrhagic PANEL 10:34 AM [employer] telangiectasia (HCC) CBC WITH PLATELET AND STAT 04/08/2018 Hereditary hemorrhagic DIFFERENTIAL 10:34 AM [employer] telangiectasia (HCC) URINALYSIS, AUTOMATED STAT 04/08/2018 Hereditary hemorrhagic WITH MICROSCOPY 10:34 AM [employer] telangiectasia (HCC) URINALYSIS, AUTOMATED STAT 02/27/2018 Hereditary hemorrhagic WITH MICROSCOPY 10:39 AM [employer] telangiectasia (HCC) ESTIMATED GFR Routine 02/25/2018 10:02 AM [employer] TOTAL IRON BINDING Routine 02/25/2018 Iron deficiency anemia CAPACITY 10:02 AM [employer] secondary to blood loss (chronic) Hereditary hemorrhagic telangiectasia (HCC) FERRITIN LEVEL Routine 02/25/2018 Iron deficiency anemia 10:02 AM [employer] secondary to blood loss (chronic) Hereditary hemorrhagic telangiectasia (HCC) HEPATIC FUNCTION PANEL Routine 02/25/2018 Iron deficiency anemia 10:02 AM [employer] secondary to blood loss (chronic) Hereditary hemorrhagic telangiectasia (HCC) BASIC METABOLIC PANEL Routine 02/25/2018 Iron deficiency anemia 10:02 AM [employer] secondary to blood loss (chronic) Hereditary hemorrhagic [...] Hereditary hemorrhagic 3:54 PM CDT telangiectasia (HCC) [place] AN ELECTIVE Routine 11/21/[address] 2:37 [...] hemorrhagic WITH MICROSCOPY 9:42 AM CDT telangiectasia after 07/23/2017 Results * Estimated GFR (07/16/2018 10:59 AM CDT) Only the most recent of 14 results within the time period is included. Estimated GFR 78 mL/min/1.73 m2 [facility] Comment: HOSPITAL CatergoryUnitsInte rpretation G1 >=90 Normal or high G2 60-89Mildly decreased A1g43-54 Mildly to moderately decreased M1y08-29 Moderately to severely decreased G4 15-29Severely decreased G5 <15Kidney failure The eGFR was calculated using the Chronic Kidney Disease Epidemiology Collaboration (CKD-EPI) equation. Interpretation is based on recommendations of the National Kidney Foundation-Kidney Disease Outcomes Quality Initiative (NKF-KDOQI) published in 2014. Specimen Plasma specimen Performing Organization Address City/State/Zipcode Phone Number [facility] DEPARTMENT OF [address] [place] [address] PATHOLOGY AND GENOMIC MEDICINE [address] * Urinalysis, automated with microscopy (07/16/2018 10:59 AM CDT) Only the most recent of 10 results within the time period is included. Color, UA Yellow [facility] Appearance, UA Clear [facility] Specific gravity, UA 1.015 1.001 - 1.035 [facility] pH, UA 6.0 5.0 - 8.5 [facility] Protein, UA Negative Negative [facility] Glucose, UA Negative Negative [facility] Ketones, UA Negative Negative [facility] Bilirubin, UA Negative Negative [facility] Blood, UA Negative Negative [facility] Nitrite, UA Negative Negative [facility] Urobilinogen, UA <2.0 <2.0 [facility] Leukocyte esterase, UA Negative Negative [facility] Epithelial cells, UA 9 /HPF [facility] WBC, UA 1 0 - 4 /HPF [facility] RBC, UA 1 0 - 5 /HPF [facility] Bacteria, UA Few None seen [facility] Hyaline casts, UA 1 /LPF [facility] Yeast, UA None seen [facility] Yeast with pseudohyphae, None seen [facility] Specimen Urine Performing Organization Address City/State/Zipcode Phone Number [facility] DEPARTMENT OF [address] [place] [address] PATHOLOGY AND GENOMIC MEDICINE [address] * CBC with platelet and differential (07/16/2018 10:59 AM CDT) Only the most recent of 11 results within the time period is included. WBC 4.58 4.50 - 11.00 k/uL [facility] RBC 4.53 4.20 - 5.50 m/uL [facility] HGB 13.9 12.0 - 16.0 g/dL [facility] HCT 42.6 37.0 - 47.0 % [facility] MCV 94.0 82.0 - 100.0 fL [facility] MCH 30.7 27.0 - 34.0 pg [facility] MCHC 32.6 31.0 - 37.0 g/dL [facility] RDW - SD 54.1 37.0 - 55.0 fL [facility] MPV 12.3 8.8 - 13.2 fL [facility] Platelet count 188 150 - 400 k/uL [facility] Neutrophils 64.5 39.0 - 69.0 % [facility] Lymphocytes 19.4 (L) 25.0 - 45.0 % [facility] Monocytes 13.5 (H) 0.0 - 10.0 % [facility] Eosinophils 2.4 0.0 - 5.0 % [facility] Basophils 0.2 0.0 - 1.0 % [facility] Specimen Urine Performing Organization Address [facility] [place] [facility] Phone Number [facility] [place] [place] [address] PATHOLOGY AND GENOMIC MEDICINE [address] * Magnesium level (07/16/2018 10:59 AM CDT) Only the most recent of 3 results within the time period is included. Magnesium 1.7 1.6 - 2.4 mg/dL [facility] Specimen Plasma specimen Performing Organization Address [facility] [place] Phone Number [facility] [place] [place] [address] PATHOLOGY AND GENOMIC MEDICINE [address] * Comprehensive metabolic panel (07/16/2018 10:59 AM CDT) Only the most recent of 10 results within the time period is included. Sodium 139 135 - 148 mEq/L [facility] Potassium 4.4 3.5 - 5.0 mEq/L [facility] Chloride 105 98 - 112 mEq/L [facility] CO2 18 (L) 24 - 31 mEq/L [facility] Anion gap 16@ANIO (H) 7 - 15 mEq/L [facility] BUN 17 8 - 23 mg/dL [facility] Creatinine 0.78 0.50 - 0.90 mg/dL [facility] Glucose 131 (H) 65 - 99 mg/dL [facility] Calcium 9.0 8.8 - 10.2 mg/dL [facility] Protein 6.9 6.3 - 8.3 g/dL [facility] Comment: HOSPITAL [place] 4.6-7.0 g/dL 1 week 4.4-7.6 g/dL 7 months-1year 5.1-7.3 g/dL 1-2 years5.6-7 .5 g/dL >3 years6.0-8 .0 g/dL 18-150 6.3-8.3 g/dL Albumin 3.7 3.5 - 5.0 g/dL [facility] A/G ratio 1.2 0.7 - 3.8 [facility] Alkaline phosphatase 86 35 - 104 U/L [facility] AST 18 10 - 35 U/L [facility] ALT 14 5 - 50 U/L [facility] Total bilirubin 0.3 0.0 - 1.2 mg/dL [facility] Specimen Plasma specimen Performing Organization Address [facility] [place] Phone Number [facility] [place] [place] [address] PATHOLOGY AND GENOMIC MEDICINE [address] * Total iron binding capacity (06/16/2018 11:29 AM CDT) Only the most recent of 2 results within the time period is included. Iron level 60 37 - 145 ug/dL [facility] Iron binding capacity 248 200 - 400 ug/dL [facility] % Saturation 24.2 15.0 - 38.0 % [facility] Specimen Plasma specimen Performing Organization Address [facility] [place] Phone Number [facility] [place] [place] [address] PATHOLOGY AND GENOMIC MEDICINE [address] * Ferritin level (06/16/2018 11:29 AM CDT) Only the most recent of 2 results within the time period is included. Ferritin level 68 13 - 150 ng/mL [facility] Specimen Plasma specimen Performing Organization Address City/[facility] [place] Phone Number [facility] [place] [place] [address] PATHOLOGY AND GENOMIC MEDICINE [address] * Hepatic function panel (06/16/2018 11:29 AM CDT) Only the most recent of 2 results within the time period is included. Albumin 3.6 3.5 - 5.0 g/dL [facility] Total bilirubin <0.2 0.0 - 1.2 mg/dL [facility] Bilirubin direct <0.2 0.0 - 0.3 mg/dL [facility] Alkaline phosphatase 78 35 - 104 U/L [facility] Protein 6.9 6.3 - 8.3 g/dL [facility] Comment: HOSPITAL 4.6-7.0 g/dL 1 week 4.4-7.6 g/dL 7 months-1year 5.1-7.3 g/dL 1-2 years5.6-7 .5 g/dL >3 years6.0-8 .0 g/dL 18-150 6.3-8.3 g/dL ALT 18 5 - 50 U/L [facility] AST 16 10 - 35 U/L [facility] Specimen Plasma specimen Performing Organization Address [facility] [place] Phone Number [facility] [place] [place] [address] PATHOLOGY AND GENOMIC MEDICINE [address] * Basic metabolic panel (06/16/2018 11:29 AM CDT) Only the most recent of 8 results within the time period is included. Sodium 143 135 - 148 mEq/L [facility] Potassium 4.1 3.5 - 5.0 mEq/L [facility] Chloride 109 98 - 112 mEq/L [facility] CO2 20 (L) 24 - 31 mEq/L [facility] Anion gap 14@ANIO 7 - 15 mEq/L [facility] BUN 26 (H) 8 - 23 mg/dL [facility] Creatinine 0.95 (H) 0.50 - 0.90 mg/dL [facility] Glucose 94 65 - 99 mg/dL [facility] Calcium 9.5 8.8 - 10.2 mg/dL [facility] Specimen Plasma specimen Performing Organization Address [facility] [place] Phone Number [facility] [place] [place] [address] PATHOLOGY AND GENOMIC MEDICINE [address] * CBC hemogram (06/01/2018 5:48 AM [employer]) Only the most recent of 5 results within the time period is included. WBC 4.65 4.50 - 11.00 k/uL [facility] [facility] RBC 4.00 (L) 4.20 - 5.50 m/uL [facility] HGB 12.9 12.0 - 16.0 g/dL [facility] HCT 41.0 37.0 - 47.0 % [facility] MCV 102.5 (H) 82.0 - 100.0 fL [facility] MCH 32.3 27.0 - 34.0 pg [facility] MCHC 31.5 31.0 - 37.0 g/dL [facility] RDW - SD 61.1 (H) 37.0 - 55.0 fL [facility] MPV 11.8 8.8 - 13.2 fL [facility] Platelet count 166 150 - 400 k/uL [facility] Nucleated RBC 0.00 /100 WBC [facility] Specimen Blood Performing Organization Address City/State/Zipcode Phone Number [facility] DEPARTMENT OF [address] [place] [address] PATHOLOGY AND GENOMIC MEDICINE [address] * XR Chest 1 Vw Portable (05/31/2018 8:50 PM [employer]) Only the most recent of 2 results within the time period is included. Narrative Performed At EXAMINATION:XR CHEST 1 VW PORTABLE [facility] CLINICAL HISTORY: HYPOXIA COMPARISON:05/26/2018; CT PE, 05/27/2018 IMPRESSION: Overall findings are not significantly changed as follows: Redemonstration of a right chest port with the catheter tip overlying the cavoatrial junction. 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 Cardiomediastinal silhouette is within normal limits of size. No focal or confluent airspace consolidation is seen to suggest acute pneumonia. No sizable pleural effusion. No pneumothorax identified. Partially calcified bilateral breast implants. The integrity of these breast implants cannot be assessed on the current radiographic imaging. No acute osseous abnormalities are visualized. [facility]-[id number] Procedure Note Hm Interface, Radiology Results Incoming - 05/31/2018 10:29 PM [facility] [employer] EXAMINATION: XR CHEST 1 VW PORTABLE CLINICAL HISTORY: HYPOXIA COMPARISON: 05/26/2018; CT PE, 05/27/2018 IMPRESSION: Overall findings are not significantly changed as follows: Redemonstration of a right chest port with the catheter tip overlying the cavoatrial junction. 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 Cardiomediastinal silhouette is within normal limits of size. No focal or confluent airspace consolidation is seen to suggest acute pneumonia. No sizable pleural effusion. No pneumothorax identified. Partially calcified bilateral breast implants. The integrity of these breast implants cannot be assessed on the current radiographic imaging. No acute osseous abnormalities are visualized. [facility]-[id number] Performing Organization Address City/State/Zipcode Phone Number [facility] [address] [phone] * Echocardiogram complete w contrast and 3D if needed (05/27/2018 7:00 AM [employer]) Narrative Performed At [facility] Echocardiography Report [id number] [place] [address] Pat.Name:NANCIE RICE Pat.ID:[id number] .Date: 05/27/2018 Refer.MD:PATRIC SOUZA MD Exam Time: 6:20:00 AMStudy Type:Routine Echo Height:165.1cm Weight:69.3kg BSA: 1.76 m2 DOBAge:1950,68Y Sex: FEMALEBP:153/65 Sonogrphr: Jessica Flor RDCS, RVSPat. Stat.:[address] Status:Final Echo Event ID:[id number] Order ID:[id number] Reason for Study:Respiratory failure-uncertain etiology History / Clinical:PULMONARY AVM Procedures:2D Echo, Colorflow Doppler Race:C SUMMARY: LV EF is normal. Reduced Global Long. Strain to -13.9% RV systolic function is normal. LA volume is severely enlarged. LV filling pressure is borderline elevated. Estimated PA systolic pressure is 37 mmHg, assuming a mean RAP of 5 mmHg. FINDINGS: LV: LV size is normal. LV EF is normal. Overall wall motion is normal.Reduced Global Long. Strain to -13.9% Estimated EF is55-59%. RV: RV size is normal. RV systolic function is normal. LA: LA volume is severely enlarged. RA: RA size is normal. AO: Aortic root diameter is normal. JOANNA: No pericardial effusion. AV: No structural AV abnormalities noted. A trace of aortic regurgitation. MV: No structural MV abnormalities noted. PV: No structural PV abnormalities noted. TV: No structural TV abnormalities noted. A trace of tricuspid regurgitation Evangelista: LV relaxation is impaired. LV filling pressure is borderline elevated. Other:Estimated PA systolic pressure is 37 mmHg, assuming a mean RAPof 5 mmHg. MEASUREMENTS: DOPPLER LVOT Stroke Vol LVOT 2 cmLVOT SV85.224 ml LVOT 2 cmLVOT CO 5.71 l/min LVOT TVI 27.128 cm LVOT CI3.244 l/m/m2 LVOT Tm387 htrcQD35 bpm 2D Parasternal Long [place] LVIDd5.153 cmIndex2.928 cm/m Ao An2.096 cm LVIDs3.947 cmAo Rtd 2.782 cm Index1.581 cm/m LV%fs23.404 % LV Kqqf948.742 g(87-129) IVSd 0.914 cmLVM Index89.058 g/m2 LVPWd0.805 cmRWT0.312 LA Ds4.389 cm LA Sng Plane LA Area25.267 cm2(8.8-23.4) LA Vol 95.323 ml Index54.161 ml/m LA LngAx 5.342 cm Signed 05/27/2018 09:19 AM Shawn Jimenez M.D. Procedure Note Interface, Radiology Results In - 05/27/2018 9:20 AM [facility] Echocardiography Report [id number] [facility], [address] [address], [place] [address] Pat.Name: NANCIE RICE.ID: [id number] .Date: 05/27/2018 Refer.MD: PATRIC SOUZA MD Exam Time: 6:20:00 AM Study Type:Routine Echo Height: 165.1cm Weight: 69.3kg BSA: 1.76 m2 Age: 1 1950,68Y Sex: FEMALE BP: 153/65 Sonogrphr: Jessica Flor RDCS, RVSPat. Stat.:Inpatient Room: [place] [address] Study Status:Final Echo Event ID:[id number] Order ID: [id number] Reason for Study:Respiratory failure-uncertain etiology History / Clinical:PULMONARY AVM Procedures:2D Echo, Colorflow Doppler Race: C SUMMARY: LV EF is normal. Reduced Global Long. Strain to -13.9% RV systolic function is normal. LA volume is severely enlarged. LV filling pressure is borderline elevated. Estimated PA systolic pressure is 37 mmHg, assuming a mean RAP of 5 mmHg. FINDINGS: LV: LV size is normal. LV EF is normal. Overall wall motion is normal. Reduced Global Long. Strain to -13.9% Estimated EF is 55-59%. RV: RV size is normal. RV systolic function is normal. LA: LA volume is severely enlarged. RA: RA size is normal. AO: Aortic root diameter is normal. JOANNA: No pericardial effusion. AV: No structural AV abnormalities noted. A trace of aortic regurgitation. MV: No structural MV abnormalities noted. PV: No structural PV abnormalities noted. TV: No structural TV abnormalities noted. A trace of tricuspid regurgitation Evangelista: LV relaxation is impaired. LV filling pressure is borderline elevated. Other: Estimated PA systolic pressure is 37 mmHg, assuming a mean RAP of 5 mmHg. MEASUREMENTS: DOPPLER LVOT Stroke Vol LVOT 2 cm LVOT SV 85.224 ml LVOT 2 cm LVOT CO 5.71 l/min LVOT TVI 27.128 cm LVOT CI 3.244 l/m/m2 LVOT Tm 387 msec HR 67 bpm 2D Parasternal Long [place] LVIDd 5.153 cm Index 2.928 cm/m Ao An 2.096 cm LVIDs 3.947 cm Ao Rtd 2.782 cm Index 1.581 cm/m LV%fs 23.404 % LV Mass 156.742 g (87-129) IVSd 0.914 cm LVM Index 89.058 g/m2 LVPWd 0.805 cm RWT 0.312 LA Ds 4.389 cm LA Sng Plane LA Area 25.267 cm2 (8.8-23.4) LA Vol 95.323 ml Index 54.161 ml/m LA LngAx 5.342 cm Signed 05/27/2018 09:19 AM Shawn Jimenez M.D. Performing Organization Address [facility] Phone Number [facility] [address] [place] [address] * Phosphorus level (05/27/2018 3:00 AM [employer]) Phosphorus 2.8 2.4 - 4.5 mg/dL [facility] Specimen Plasma specimen Performing Organization Address [facility]t Phone Number [facility] DEPARTMENT OF [address] [place] [address] PATHOLOGY AND GENOMIC MEDICINE [address] * CT Angiogram Pe Chest (05/27/2018 2:32 AM [employer]) Narrative Performed At CT ANGIOGRAM PE CHEST [facility] INDICATION:pe vs AV malformation TECHNIQUE: Multidetector CT of the chest with attention to the pulmonary arteries was performed following the intravenous administration of iodinated contrast. Standard multiplanar reformatted images were performed.In addition, postprocessed 3D MIP images were also performed for CT angiography. CT imaging was performed with iterative reconstruction technique and/or automated exposure control to reduce radiation dose. COMPARISON:07/23/2016. FINDINGS: PULMONARY ARTERIES:The pulmonary arteries are diagnostically opacified without findings for acute pulmonary embolus. There are multiple pulmonary arteriovenous malformations, the largest of which is located in the left lower lobe and has a nidus measuring roughly 2.4 x 1.8 cm. There are surgical changes related to embolization of multiple pulmonary AVMs. HEART AND GREAT ARTERIES: There is mild cardiomegaly without a pericardial effusion. The thoracic aorta is normal in caliber. MEDIASTINUM AND YING: No mass or hematoma is identified.No enlarged lymph nodes are seen.Trachea and central airways are patent. LUNGS:There is a small focus of groundglass opacity within the lateral aspect of the left upper lobe. No pulmonary consolidation is identified. PLEURA: No pneumothorax or effusion. CHEST WALL:No acute osseous abnormality. There are bilateral breast implants. There is a right-sided Port-A-Cath with its tip terminating at the superior cavoatrial junction. VISUALIZED ABDOMEN: No acute findings. IMPRESSION: 1. No pulmonary embolism. 2. 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 3. Small focus of groundglass opacity in the lateral aspect of the left upper lobe, suggestive of mild bronchiolitis. No pulmonary consolidation is identified. [facility]-[id number] Procedure Note Interface, Radiology Results Incoming - 05/27/2018 3:01 AM [facility] CT ANGIOGRAM PE CHEST INDICATION: pe vs AV malformation TECHNIQUE: Multidetector CT of the chest with attention to the pulmonary arteries was performed following the intravenous administration of iodinated contrast. Standard multiplanar reformatted images were performed. In addition, postprocessed 3D MIP images were also performed for CT angiography. CT imaging was performed with iterative reconstruction technique and/or automated exposure control to reduce radiation dose. COMPARISON: 07/23/2016. FINDINGS: PULMONARY ARTERIES: The pulmonary arteries are diagnostically opacified without findings for acute pulmonary embolus. There are multiple pulmonary arteriovenous malformations, the largest of which is located in the left lower lobe and has a nidus measuring roughly 2.4 x 1.8 cm. There are surgical changes related to embolization of multiple pulmonary AVMs. HEART AND GREAT ARTERIES: There is mild cardiomegaly without a pericardial effusion. The thoracic aorta is normal in caliber. MEDIASTINUM AND YING: No mass or hematoma is identified. No enlarged lymph nodes are seen. Trachea and central airways are patent. LUNGS: There is a small focus of groundglass opacity within the lateral aspect of the left upper lobe. No pulmonary consolidation is identified. PLEURA: No pneumothorax or effusion. CHEST WALL: No acute osseous abnormality. There are bilateral breast implants. There is a right-sided Port-A-Cath with its tip terminating at the superior cavoatrial junction. VISUALIZED ABDOMEN: No acute findings. IMPRESSION: 1. No pulmonary embolism. 2. 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 3. Small focus of groundglass opacity in the lateral aspect of the left upper lobe, suggestive of mild bronchiolitis. No pulmonary consolidation is identified. [facility]-[id number] Performing Organization Address City/[facility]/[place] [address] * Lactic acid level (05/26/2018 8:30 PM [employer]) Lactic acid 2.3 (H) 0.5 - 2.2 mmol/L [facility] Specimen Blood Performing Organization Address City/[facility]/Zipcode Phone Number [facility] DEPARTMENT OF [address] [place] [phone] PATHOLOGY AND GENOMIC MEDICINE [address] * ECG 12 lead (05/26/2018 8:25 PM [employer]) Ventricular rate 78 [facility] MUSE Atrial rate 78 [facility] MUSE WY interval 168 [facility] QRSD interval 134 [facility] QT interval 414 [facility]USE QTC interval 471 [facility] MUSE P axis 1 65 [facility] MUSE QRS axis 1 37 [facility] MUSE T wave axis 49 [facility] MUSE EKG impression Normal sinus rhythm-Left [facility] MUSE bundle branch block-Abnormal ECG-In automated comparison with ECG of 22-DEC-2017 13:35,-No significant change was found- Narrative Performed At Performing Organization Address City/[facility] [place] [address] * Urinalysis screen and microscopy, with reflex to culture (05/26/2018 8:20 PM [employer]) Only the most recent of 2 results within the time period is included. Specimen site Random void [facility] Color, UA Yellow [facility] Appearance, UA Clear [facility] Specific gravity, UA 1.016 1.001 - 1.035 [facility] pH, UA 6.0 5.0 - 8.5 [facility] Protein, UA Negative Negative [facility] Glucose, UA Negative Negative [facility] Ketones, UA 2+ (A) Negative [facility] Bilirubin, UA Negative Negative [facility] Blood, UA Negative Negative [facility] Nitrite, UA Negative Negative [facility] Urobilinogen, UA <2.0 <2.0 [facility] Leukocyte esterase, UA Negative Negative [facility] Epithelial cells, UA 6 /HPF [facility] WBC, UA 1 0 - 4 /HPF [facility] RBC, UA 1 0 - 5 /HPF [facility] Bacteria, UA None seen None seen [facility] Yeast, UA None seen [facility] Yeast with pseudohyphae, None seen [facility] Hyaline casts, UA 3 /LPF [facility] Specimen Urine Performing Organization Address [facility]ercovt Phone Number [facility] DEPARTMENT OF [address] [place] [address] PATHOLOGY AND GENOMIC MEDICINE [address] * Urea nitrogen, urine, random (05/26/2018 8:20 PM [employer]) Urea nitrogen, urine, 697 mg/dL [facility] Specimen Urine Performing Organization Address City/[facility] Centercode Phone Number [address] [address] PATHOLOGY AND GENOMIC MEDICINE [address] * Sodium level, urine, random (05/26/2018 8:20 PM [employer]) Sodium, urine, random 73 mEq/L [facility] Specimen Urine Performing Organization Address City/[facility] Centercode Phone Number [facility] [place] [place] [address] PATHOLOGY AND GENOMIC MEDICINE [address] * Creatinine level, urine, random (05/26/2018 8:20 PM [employer]) Creatinine, urine, random 108 mg/dL [facility] Specimen Urine Performing Organization Address City/[facility] Phone Number [facility] [place] [place] [address] PATHOLOGY AND GENOMIC MEDICINE [address] * Urine culture (05/26/2018 8:20 PM [employer]) Only the most recent of 2 results within the time period is included. Urine culture SEE COMMENTComment: [facility] Bacteriuria screen negative. HOSPITAL Performing Organization Address [facility] Phone Number [facility] [place] [place] [address] PATHOLOGY AND GENOMIC MEDICINE [address] * POC glucose (05/26/2018 2:16 PM [employer]) POC glucose 108 (H) 65 - 99 mg/dL [facility] Comment: [facility] Notified RN Meter ID: [id number] Registered Route Associate: Alyse Yung Performing Organization Address [facility] Centercovt Phone Number [facility] [place] [place] [address] PATHOLOGY AND GENOMIC MEDICINE [address] * Respiratory pathogen panel (05/26/2018 2:07 PM [employer]) Only the most recent of 2 results within the time period is included. Respiratory pathogen Positive for Human [facility] panel Metapneumovirus [facility] Negative for all other pathogens tested: Negative for Adenovirus Negative for Coronavirus HKU1 Negative for Coronavirus NL63 Negative for Coronavirus 229E Negative for Coronavirus OC43 Negative for Rhinovirus/Enterovirus Negative for Influenza A [...] less than the detectable limits of the assa (A) Comment: Specimen Information Specimen Source: Nares Specimen Site: Right Specimen Nares - Right Performing Organization Address [facility] Centercode Phone Number [facility] [place] [address] PATHOLOGY AND [facility] MEDICINE [address] * Influenza antigen test, reflex negative to RPP (05/26/2018 2:07 PM [employer]) Influenza antigen Negative for Influenza A/B [facility] Comment: Specimen Information Specimen Source: Nares Specimen Site: Right Specimen Nares - Right Performing Organization Address [facility] Phone Number [facility] [place] [place] [address] PATHOLOGY AND [facility] MEDICINE [address] * Arterial blood gas (05/26/2018 12:05 PM [employer]) pH, arterial 7.46 (H) 7.35 - 7.45 [facility] pCO2, arterial 31 (L) 35 - 45 mmHg [facility] pO2, arterial 57 (L) 80 - 90 mmHg [facility] Bicarbonate, arterial 21.8 21.0 - 28.0 mmol/L [facility] Base excess, arterial -1 -2 - 2 mEq/L [facility] O2 saturation, arterial 90 (L) 95 - 100 % [facility] Specimen Blood Performing Organization Address City/[facility] Phone Number [facility] [place] [place] [address] PATHOLOGY AND GENOMIC MEDICINE [address] * Blood culture, aerobic & anaerobic (05/26/2018 11:41 AM [employer]) Blood culture isolate No growth after 5 days of [facility] incubation. [facility] Comment: Specimen Information Specimen Source: Blood Specimen Site: Line, port-a-cath Specimen Blood - Line, port-a-cath Performing Organization Address City/[facility] Centercode Phone Number [facility] DEPARTMENT OF [address] [place] [address] PATHOLOGY AND [facility] MEDICINE [address] * Partial thromboplastin time, activated (05/26/2018 11:41 AM [employer]) Only the most recent of 2 results within the time period is included. PTT 26.3 23.0 - 36.0 sec [facility] Comment: HOSPITAL PTT therapeutic range for unfractionated heparin is 61.0-112.0 seconds which corresponds to Anti-Xa 0.3-0.7 U/ml. Specimen Blood Performing Organization Address [facility] Phone Number [facility] [place] [place] [address] PATHOLOG[address] * Prothrombin time with INR (05/26/2018 11:41 AM [employer]) Only the most recent of 2 results within the time period is included. Prothrombin time 13.1 11.5 - 14.5 sec [facility] INR 1.0 [facility] Comment: HOSPITAL The International Normalized Ratio (INR) is a therapeutic monitoring tool for patients who are stable on oral anticoagulant therapy. An INR of 2.0-3.0 is suggested for deep vein thrombosis/pulmonary embolism. Specimen Blood Performing Organization Address [facility] Phone Number [facility] DEPARTMENT OF [address] [place] [address] PATHOLOGY AND [facility] MEDICINE [address] * CRITICAL CARE (05/26/2018 11:10 AM [employer]) Narrative Performed At Reyes Mcmahon MD 05/31/2018 11:52 AM Critical Care Performed by: Reyes Mcmahon MD Authorized by: Reyes Mcmahon MD Critical care provider statement: Critical care time (minutes):50 Critical care time was exclusive of:Separately billable procedures and treating other patients and teaching time Critical care was necessary to treat or prevent imminent or life-threatening deterioration of the following conditions:Respiratory failure and circulatory failure Critical care was time spent personally by me on the following activities:Development of treatment plan with patient or surrogate, discussions with consultants, evaluation of patient's response to treatment, examination of patient, interpretation of cardiac output measurements, obtaining history from patient or surrogate, ordering and performing treatments and interventions, ordering and review of laboratory studies, ordering and review of radiographic studies, pulse oximetry, re-evaluation of patient's condition and review of old charts Douglas 'yes' if you are taking over critical care for this patient from another provider.: no * Gram stain (05/09/2018 1:39 PM [employer]) Gram stain result No WBC's [facility] Gram positive rods [facility] Comment: Specimen Information Specimen Source: Urine Specimen Site: Clean catch Specimen Urine Performing Organization Address [facility]erc[facility]t Phone Number [facility] [place] [place] [address] PATHOLOG[address] * Manual differential (04/08/2018 10:34 AM [employer]) Only the most recent of 4 results within the time period is included. Manual differential PERFORMED [facility] Neutrophils 62.0 39.0 - 69.0 % [facility] Lymphocytes 22.0 (L) 25.0 - 45.0 % [facility] Monocytes 12.0 (H) 0.0 - 10.0 % [facility] Eosinophils 4.0 0.0 - 5.0 % [facility] Basophils 0.0 0.0 - 1.0 % [facility] Metamyelocytes 0 % [facility] Promyelocytes 0 % [facility] Platelet slide review [place] adequate [facility] Toxic granulation Slight [facility] Anisocytosis Moderate [facility] Polychromasia Moderate [facility] Tear drop cells Occasional [facility] Spherocytes Occasional [facility] Ovalocytes Moderate [facility] Enlarged platelets Moderate (A) [facility] Giant platelets Occasional [facility] Performing Organization Address [facility] Phone Number [facility] [place] [address] PATHOLOGY AND GENOMIC MEDICINE [address] * Transfuse RBC (12/04/2017 5:50 PM CDT) Only the most recent of 2 [...] performed via a 0.2 um filter. A bottom steep tender fluoroscopic image of the chest was then [...] and the venotomy site, through which the 6[place]izen [place] port catheter was placed. The [employer] Smart port CT was placed in the [...] until it has completely healed. [facility]-[id number] Procedure Note [facility] Results Incoming - 11/21/2017 4:28 [...] performed via a 0.2 um filter. A bottom steep tender fluoroscopic image of the chest was then [...] and the venotomy site, through which the 6-Citizen [place] port catheter was placed. The [employer] Smart [...] until it has completely healed. [id number] Performing Organization Address City/State/[facility] Phone Number R[address] [address] [place] [address] * [place] Cath Check (11/21/2017 3:54 [...] performed via a 0.2 um filter. A bottom steep tender fluoroscopic image of the chest was then [...] and the venotomy site, through which the 6-Citizen [place] port catheter was placed. The [employer] Smart port CT was placed in the [...] until it has completely healed. [facility]-[id number] Procedure Note [facility] Results Incoming - 11/21/2017 4:28 [...] performed via a 0.2 um filter. A bottom steep tender fluoroscopic image of the chest was then [...] and the venotomy site, through which the 6-Citizen [place] port catheter was placed. The [employer] Smart [...] until it has completely healed. [id number] Performing Organization Address [facility] Cent[facility] Phone Number [facility] [address] [place] [address] * Estimated GFR (11/08/2017 10:54 AM CDT) Only the most recent of 4 results within the time period is included. GFR Non Af Amer 71 mL/min/1.73 m2 [facility] DEPARTMENT OF PATHOLOGY AND GENOMIC MEDICINE GFR Af Amer 87 mL/min/1.73 m2 [facility] DEPARTMENT OF Comment: PATHOLOGY AND [...] Americans. Specimen Plasma specimen Performing Organization Address City/[facility] Phone Number [facility] DEPARTMENT OF [address] [place] [address] PATHOLOGY AND GENOMIC MEDICINE * Smear review (10/03/2017 10:28 AM CDT) Only the most recent of 3 results within the time period is included. Platelet slide review [place] adequate [facility] DEPARTMENT OF PATHOLOGY AND GENOMIC MEDICINE Anisocytosis Moderate [facility] DEPARTMENT OF PATHOLOGY AND GENOMIC MEDICINE Polychromasia Moderate [facility] DEPARTMENT OF PATHOLOGY AND GENOMIC MEDICINE Tear drop cells Occasional [facility] DEPARTMENT OF PATHOLOGY AND GENOMIC MEDICINE Spherocytes Occasional [facility] DEPARTMENT OF PATHOLOGY AND GENOMIC MEDICINE Ovalocytes Moderate [facility] DEPARTMENT OF PATHOLOGY AND GENOMIC MEDICINE Enlarged platelets Moderate (A) [facility] DEPARTMENT OF PATHOLOGY AND GENOMIC MEDICINE Giant platelets Occasional [facility] DEPARTMENT OF PATHOLOGY AND GENOMIC MEDICINE Toxic granulation Slight [facility] DEPARTMENT OF PATHOLOGY AND GENOMIC MEDICINE Performing Organization Address City/State/Zipcode Phone Number [facility] DEPARTMENT OF [address] [place] [address] PATHOLOGY AND GENOMIC MEDICINE * Outpatient EEG (08/14/2017 1:38 PM CDT) [...] epileptiform activity was recorded. ICD-10 Code: R56.9 after 07/23/2017 Insurance Payer Benefit Subscriber ID Type Phone Address Plan / Group MEDICARE MEDICARE xxxxxxxxxxx Medicare [place], [place] PART A AND B [employer] xxxxxxxxxx [facility] Advance Directives Patient has advance care planning documents on file. For more information, ovidio arias contact: Clay Santana [address] [place] [address]
--- OUTSIDE RECORDS SUMMARY | 2018-07-24 16:02 | XMS REPORT | Continuity of Care Document ---
Author Author [facility] Interface Address Unknown Phone Unavailable Problems Problem Status Onset Date Classification Date Reported Comments Source Trochanteric bursitis of right hip Active Problem 10/29/2017 Jarrod Rosas Insomnia, unspecified type Active Problem 10/29/2017 Jarrod Rosas Trochanteric bursitis of left hip Active Problem 10/29/2017 Jarrod Rosas High risk medication use Active Problem 10/29/2017 Jarrod Rosas Neuropathy Active Problem 10/29/2017 Jarrod Rosas HHT Active Problem 10/29/2017 Jarrod Rosas Chronic pain syndrome Active Problem 10/29/2017 Jarrod Rosas Medications Medication [...]
[2018-07-24] MEDS ORDERED: HYDROCODONE/APAP 5MG-325MG TAB PO ONE (16:45)
--- NOTE | 2018-07-24 16:49 | NUR ---
MD ORDERED LABS ONLY NO IV NEEDED, PT STATES SHE HAS TOO MUCH PAIN FROM "PAIN SYNDROME" AND MUST HAVE "THE COLD SPRAY" TO NUMB PRIOR TO PUNCTURE OR "I GUESS YOU PEOPLE JUST DONT CARE." PT THEN STATED, "IF IT HURTS, IM GONNA KICK YOU." PT INFORMED NOT TO KICK NURSE AND NURSE WILL HAVE TO LEAVE ROOM IF KICKED. PT ARGUMENTATIVE AND SKIN REFRID/ANESTHIC SPRAY USED LIBRALLY TO COMFORT PATIENT. ONE STRAIGHT STICK DONE AND LABS OBTAINED.
--- NOTE | 2018-07-24 17:07 | Diagnostic Imaging Report ---
History:Trauma, fall Comparison studies: None Technique: Axial images were obtained from the skull base to the vertex. Coronal and sagittal images reconstructed from the axial data. Dose modulation, iterative reconstruction, and/or weight based adjustment of the mA/kV was utilized to reduce the radiation dose to as low as reasonably achievable. Intravenous contrast: None Findings: Scalp/skull: An acute left supraorbital scalp hematoma is not associated with subcutaneous emphysema or with hyperdense foreign bodies. No underlying fractures. Extra-axial spaces: No masses. No fluid collections. Brain sulci: Mildly prominent. Ventricles: Mild compensatory dilatation. No hydrocephalus. Parenchyma: Cortical encephalomalacic changes, centered in the right middle frontal gyrus, in the right frontal operculum and anterior insula, in the inferomedial right occipital lobe (below the calcarine fissure), left postcentral, left subcentral and throughout the left inferior frontal gyrus are associated with hypodense gliotic changes in the underlying white matter. Subtle superimposed hypodensities in the supratentorial white matter are small vessel ischemic changes. No masses, hemorrhage, acute or additional chronic cortical vascular insults. Sellar/suprasellar region: No abnormalities. Craniocervical junction: Patent foramen magnum. No Chiari one malformation. Impression: 1. Focal acute left supraorbital superficial hematoma. No fractures. 2. No acute intracranial abnormalities. 3. Multiple focal cortical vascular insults (bilateral frontal, left parietal and right inferomedial occipital) are presumed to be the result of previous emboli to the distal branches of the middle cerebral and right posterior cerebral arteries. No previous studies are available for comparison. Additional chronic findings: - Mild generalized volume loss. - Mild supratentorial white matter small vessel ischemic changes. Signed by: Dr. Evan Carlson M.D. on 07/24/2018 5:03 PM
--- NOTE | 2018-07-24 17:40 | Diagnostic Imaging Report ---
LEFT HAND - 3 Images HISTORY: Fell COMPARISON: None available. FINDINGS: Bones: Diffusely decreased mineralization of the osseous structures limits bone detail. No acute displaced fracture. A punctate chronic appearing ununited avulsion adjacent to the dorsal aspect of the fourth distal interphalangeal joint. On the oblique view, subtle linear lucency at the waist of the scaphoid, most likely a vascular channel. No aggressive osseous lesion. Joints: Moderate degenerative changes of the first carpometacarpal joint with probable 3 mm intra-articular ossified body. Soft tissues: The soft tissues appear unremarkable. IMPRESSION: 1. Probable vascular channel at the waist of the scaphoid; however, correlate for focal point tenderness to exclude the possibility of a nondisplaced fracture. 2. Diffuse osseous demineralization. 3. Moderate osteoarthrosis of the first carpometacarpal joint. Signed by: Dr. Tyrone Fenton D.O., M.M.M. on 07/24/2018 5:36 PM
[2018-07-24] MEDS ORDERED: BACITRACIN ZINC 0.9GM TP ONE (17:45)
== END 2018-07-24 18:23 | disposition home or self-care (01) ==
LOC: FSED 15:58
DX: S00.83XA Contusion of other part of head, initial encounter (principal); S00.31XA Abrasion of nose, initial encounter; S60.512A Abrasion of left hand, initial encounter; W18.09XA Striking against other object with subsequent fall, initial encounter; Y93.01 Activity, walking, marching and hiking; Y92.481 Parking lot as the place of occurrence of the external cause; R09.02 Hypoxemia; J45.909 Unspecified asthma, uncomplicated; Z86.73 Personal history of transient ischemic attack (TIA), and cerebral infarction without residual deficits; Z87.891 Personal history of nicotine dependence
CPT/HCPCS: 70450; 80053; 81003; 82553; 84484; 85025; 93005; 99285